=== PATIENT | male | born 1950 | race Caucasian/White ===

== ENCOUNTER 2016-04-22 19:20 | Inpatient (IN) | payer SELFPAY ==
[~2016-04-22] VITALS: Ht 193 cm; Wt 100.5 kg
[2016-04-22 20:44] VITALS: BP 120/84; PULSE 102; RESP 18; TEMP 98.8; O2SAT 97
[2016-04-22] MEDS ORDERED: chlordiazePOXIDE 25 MG CAP PO STA (21:02)
[2016-04-22] MEDS ORDERED: SODIUM CHLOR 0.9% 1000 ML INJ 1,000 ML IV ONE (21:02)
[2016-04-22] MEDS ORDERED: ONDANSETRON HCL 4 MG/2 ML VIAL IVP ONE (21:15)
[2016-04-22] MEDS ORDERED: SODIUM CHLORIDE 0.9% FLUSH 5 ML FLUSH IVF PRN (21:15)
--- NOTE | 2016-04-22 21:44 | PD ---
HPI Chief Complaint: Alcohol/Drug Intoxication Time Seen by Provider: 21:00 Travel History International Travel<30 days: No Contact w/Intl Traveler<30days: No Traveled to known affect area: No History of Present Illness HPI 65-year-old male presents for evaluation of possible alcohol withdrawal. He reports that he is a heavy drinker, tricks about a pint of liquor a day, drank heavily over this past weekend. He quit drinking 4 days ago and since then he' s been feeling nauseous and had occasional vomiting, lightheadedness. He denies any pain. He denies any shortness of breath, palpitations, headache, blurred vision. He reports that he has had withdrawal symptoms in the past and this feels similar. Denies any hematemesis. He has no other complaints at this time. [facility] Past Medical History Medical History: Denies Significant Hx Social History Alcohol Use: Yes Tobacco Use: No Allergies-Medications (Allergen,Severity, Reaction): Coded Allergies: No Known Allergies (Unverified , 04/22/16) Reported Meds & Prescriptions Reported Meds & Active Scripts Active No Active Prescriptions or Reported Medications Review of Systems Except as stated in HPI: all other systems reviewed are Neg Physical Exam Narrative GENERAL: Well-nourished male in no acute distress SKIN: Warm and dry. HEAD: Atraumatic. Normocephalic. EYES: Pupils equal and round. No scleral icterus. No injection or drainage. ENT: No nasal bleeding or discharge. Mucous membranes pink and moist. NECK: Trachea midline. No JVD. CARDIOVASCULAR: Regular rate and rhythm. No murmur appreciated. RESPIRATORY: No accessory muscle use. Clear to auscultation. Breath sounds equal bilaterally. GASTROINTESTINAL: Abdomen soft, non-tender, nondistended. Hepatic and splenic margins not palpable. MUSCULOSKELETAL: No obvious deformities. NEUROLOGICAL: Awake and alert. No obvious cranial nerve deficits. Motor grossly within normal limits. Normal speech. Data Data Last Documented VS Vital Signs Date Time Temp Pulse Resp B/P Pulse Ox O2 Delivery O2 Flow Rate FiO2 04/22/16 22:36 96 Room Air 04/22/16 22:36 105 18 123/86 04/22/16 20:44 98.8 Orders Electrocardiogram (04/22/16 21:02) Complete Blood Count With Diff (04/22/16 21:02) Comprehensive Metabolic Panel (04/22/16 21:02) Magnesium (Mg) (04/22/16 21:02) Ecg Monitoring (04/22/16 21:02) Iv Access Insert/Monitor (04/22/16 21:02) Oximetry (04/22/16 21:02) Ondansetron Inj (Zofran Inj) (04/22/16 21:15) Sodium Chloride 0.9% Flush (Ns Flush) (04/22/16 21:15) Sodium Chlor 0.9% 1000 Ml Inj (Ns 1000 M (04/22/16 21:02) Chlordiazepoxide (Librium) (04/22/16 21:02) Urinalysis - C+S If Indicated (04/22/16 23:42) Urine Culture (04/22/16 23:59) Ceftriaxone Inj (Rocephin Inj) (04/23/16 01:30) Ceftriaxone Inj (Rocephin Inj) (04/23/16 23:00) Bedside Glucose JULY.AC&HS (04/23/16 01:33) Intake + Output JULY.QSHIFT (04/23/16 01:33) Alcohol Withdrawal Asmt-Ciwa Q4HX18 (04/23/16 01:33) ^ Seizure Precautions (04/23/16 01:33) Multivitamin Inj (Mvi-12 Inj)... (04/23/16 01:45) Thiamine Inj (Thiamine Inj) (04/23/16 01:45) Thiamine (Vit B1) (Vitamin B1) (04/26/16 09:00) Consult Cm-Etoh Abuse Dc Plan (04/23/16 ) Flumazenil Inj (Romazicon Inj) (04/23/16 01:45) Lorazepam (Ativan) (04/23/16 01:45) Lorazepam Inj (Ativan Inj) (04/23/16 01:45) Lorazepam (Ativan) (04/23/16 01:45) Lorazepam Inj (Ativan Inj) (04/23/16 01:45) Lorazepam Inj (Ativan Inj) (04/23/16 01:45) Lorazepam Inj (Ativan Inj) (04/23/16 01:45) Haloperidol Inj (Haldol Inj) (04/23/16 01:45) Admit To Inpatient (04/23/16 ) Vital Signs (Adult) Q4H (04/23/16 01:33) Activity Oob With Assistance (04/23/16 01:33) Bituminous Paving Machine Operator / Telemetry .CONTINUOUS (04/23/16 01:33) Intake + Output JULY.QSHIFT (04/23/16 01:33) Diet Regular Basic (04/23/16 Breakfast) Sodium Chloride 0.9% Flush (Ns Flush) (04/23/16 01:45) Sodium Chloride 0.9% Flush (Ns Flush) (04/23/16 09:00) Ondansetron Inj (Zofran Inj) (04/23/16 01:45) Bisacodyl Supp (Dulcolax Supp) (04/23/16 01:45) Comprehensive Metabolic Panel (04/24/16 06:00) Complete Blood Count With Diff (04/24/16 06:00) Scd Bilateral/Knee High JULY.BID (04/23/16 01:33) Ty Bilateral/Knee High JULY.QSHIFT (04/23/16 01:33) Acetaminophen (Tylenol) (04/23/16 01:45) Oxycodone (Roxicodone) (04/23/16 01:45) Oxycodone (Roxicodone) (04/23/16 01:45) Inpatient Certification (04/23/16 ) Admit Order (Ed Use Only) (04/23/16 01:39) Labs Laboratory Tests Test 04/22/16 04/22/16 22:45 23:59 White Blood Count 15.3 TH/MM3 Red Blood Count 4.75 MIL/MM3 Hemoglobin 17.3 GM/DL Hematocrit 49.8 % Mean Corpuscular Volume 104.8 FL Mean Corpuscular Hemoglobin 36.4 PG Mean Corpuscular Hemoglobin 34.8 % Concent Red Cell Distribution Width 13.9 % Platelet Count 192 TH/MM3 Mean Platelet Volume 8.0 FL Neutrophils (%) (Auto) 84.5 % Lymphocytes (%) (Auto) 8.0 % Monocytes (%) (Auto) 7.0 % Eosinophils (%) (Auto) 0.0 % Basophils (%) (Auto) 0.5 % Neutrophils # (Auto) 12.9 TH/MM3 Lymphocytes # (Auto) 1.2 TH/MM3 Monocytes # (Auto) 1.1 TH/MM3 Eosinophils # (Auto) 0.0 TH/MM3 Basophils # (Auto) 0.1 TH/MM3 CBC Comment DIFF FINAL Differential Comment Sodium Level 136 MEQ/L Potassium Level 4.1 MEQ/L Chloride Level 95 MEQ/L Carbon Dioxide Level 29.5 MEQ/L Anion Gap 12 MEQ/L Blood Urea Nitrogen 24 MG/DL Creatinine 2.12 MG/DL Estimat Glomerular Filtration 32 ML/MIN Rate Random Glucose 199 MG/DL Calcium Level 11.6 MG/DL Protein Corrected Calcium 10.6 MG/DL Magnesium Level 1.3 MG/DL Total Bilirubin 1.2 MG/DL Aspartate Amino Transf 45 U/L (AST/SGOT) Alanine Aminotransferase 37 U/L (ALT/SGPT) Alkaline Phosphatase 86 U/L Total Protein 8.7 GM/DL Albumin 4.0 GM/DL Urine Color YELLOW Urine Turbidity HAZY Urine pH 5.5 Urine Specific [place] 1.016 Urine Protein 30 mg/dL Urine Glucose (UA) TRACE mg/dL Urine Ketones NEG mg/dL Urine Occult Blood MOD Urine Nitrite NEG Urine Bilirubin NEG Urine Urobilinogen LESS THAN 2.0 MG/DL Urine Leukocyte Esterase TRACE Urine RBC 21 /hpf Urine WBC 23 /hpf Urine Squamous Epithelial 2 /hpf Cells Urine Bacteria RARE /hpf Urine Hyaline Casts 21 /lpf Urine Mucus FEW /lpf Microscopic Urinalysis Comment CULTURE INDICATED MDM Medical Decision Making Medical Screen Exam Complete: Yes Emergency Medical Condition: Yes Medical Record Reviewed: Yes Differential Diagnosis Alcohol withdrawal, dehydration, electrolyte abnormality, arrhythmia, DT Narrative Course 65-year-old male heavy drinker presents with nausea, vomiting, lightheadedness over the past 4 days after not having had alcohol since 5 days ago. Initial examination is reassuring. We will check basic lab work, EKG. We will give him IV fluids, Zofran, Librium and reassess. 2257: At the end of my shift the patient was signed out after the patient was moved echo pod to the physician pending lab work, likely disposition home if lab work is reassuring. He may benefit from a short course of Librium and follow up with a detoxification center such as [facility]. Scripts No Active Prescriptions or Reported Meds Anderson Rivera Apr 22, 2016 21:44
[2016-04-22 22:36] VITALS: BP 123/86; PULSE 105; RESP 18; O2SAT 96
[2016-04-22 23:09] LABS: AUTOMATED NEUTROPHIL # 12.9 TH/MM3 (1.8-7.7); BASOPHIL # 0.1 TH/MM3 (0-0.2); BASOPHIL % 0.5 % (0.0-2.0); HEMATOCRIT 49.8 % (39.0-51.0); HEMO FLAGS DIFF FINAL; LYMPHOCYTE # 1.2 TH/MM3 (1.0-4.8); MEAN CELL VOLUME 104.8 FL (80.0-100.0); MEAN CORPUSCULAR HEMOGLOBIN 36.4 PG (27.0-34.0); MEAN CORPUSCULAR HGB CONC 34.8 % (32.0-36.0); NEUT % 84.5 % (16.0-70.0); PLATELET COUNT 192 TH/MM3 (150-450); RED BLOOD COUNT 4.75 MIL/MM3 (4.50-5.90); RED CELL DISTRIBUTION WIDTH 13.9 % (11.6-17.2); WHITE BLOOD COUNT 15.3 TH/MM3 (4.0-11.0)
[2016-04-22 23:28] LABS: BICARBONATE 29.5 MEQ/L (21.0-32.0); MAGNESIUM 1.3 MG/DL (1.5-2.5); POTASSIUM 4.1 MEQ/L (3.5-5.1)
[2016-04-22 23:31] LABS: CALCIUM-PROTEIN CORRECTED 10.6 MG/DL (8.5-10.1); TOTAL BILIRUBIN ADULT 1.2 MG/DL (0.2-1.0)
--- NOTE | 2016-04-22 23:50 | PD ---
Physical Exam Date Seen by Provider: Apr 22, 2016 Narrative Patient was initially evaluated by Anderson Rivera, PAC for alcohol withdrawal. Data Data Last Documented VS Vital Signs Date Time Temp Pulse Resp B/P Pulse Ox O2 Delivery O2 Flow Rate FiO2 04/22/16 22:36 96 Room Air 04/22/16 22:36 105 18 123/86 04/22/16 20:44 98.8 Orders Electrocardiogram (04/22/16 21:02) Complete Blood Count With Diff (04/22/16 21:02) Comprehensive Metabolic Panel (04/22/16 21:02) Magnesium (Mg) (04/22/16 21:02) Ecg Monitoring (04/22/16 21:02) Iv Access Insert/Monitor (04/22/16 21:02) Oximetry (04/22/16 21:02) Ondansetron Inj (Zofran Inj) (04/22/16 21:15) Sodium Chloride 0.9% Flush (Ns Flush) (04/22/16 21:15) Sodium Chlor 0.9% 1000 Ml Inj (Ns 1000 M (04/22/16 21:02) Chlordiazepoxide (Librium) (04/22/16 21:02) Urinalysis - C+S If Indicated (04/22/16 23:42) Urine Culture (04/22/16 23:59) Labs Laboratory Tests Test 04/22/16 04/22/16 22:45 23:59 White Blood Count 15.3 TH/MM3 Red Blood Count 4.75 MIL/MM3 Hemoglobin 17.3 GM/DL Hematocrit 49.8 % Mean Corpuscular Volume 104.8 FL Mean Corpuscular Hemoglobin 36.4 PG Mean Corpuscular Hemoglobin 34.8 % Concent Red Cell Distribution Width 13.9 % Platelet Count 192 TH/MM3 Mean Platelet Volume 8.0 FL Neutrophils (%) (Auto) 84.5 % Lymphocytes (%) (Auto) 8.0 % Monocytes (%) (Auto) 7.0 % Eosinophils (%) (Auto) 0.0 % Basophils (%) (Auto) 0.5 % Neutrophils # (Auto) 12.9 TH/MM3 Lymphocytes # (Auto) 1.2 TH/MM3 Monocytes # (Auto) 1.1 TH/MM3 Eosinophils # (Auto) 0.0 TH/MM3 Basophils # (Auto) 0.1 TH/MM3 CBC Comment DIFF FINAL Differential Comment Sodium Level 136 MEQ/L Potassium Level 4.1 MEQ/L Chloride Level 95 MEQ/L Carbon Dioxide Level 29.5 MEQ/L Anion Gap 12 MEQ/L Blood Urea Nitrogen 24 MG/DL Creatinine 2.12 MG/DL Estimat Glomerular Filtration 32 ML/MIN Rate Random Glucose 199 MG/DL Calcium Level 11.6 MG/DL Protein Corrected Calcium 10.6 MG/DL Magnesium Level 1.3 MG/DL Total Bilirubin 1.2 MG/DL Aspartate Amino Transf 45 U/L (AST/SGOT) Alanine Aminotransferase 37 U/L (ALT/SGPT) Alkaline Phosphatase 86 U/L Total Protein 8.7 GM/DL Albumin 4.0 GM/DL Urine Color YELLOW Urine Turbidity HAZY Urine pH 5.5 Urine Specific [place] 1.016 Urine Protein 30 mg/dL Urine Glucose (UA) TRACE mg/dL Urine Ketones NEG mg/dL Urine Occult Blood MOD Urine Nitrite NEG Urine Bilirubin NEG Urine Urobilinogen LESS THAN 2.0 MG/DL Urine Leukocyte Esterase TRACE Urine RBC 21 /hpf Urine WBC 23 /hpf Urine Squamous Epithelial 2 /hpf Cells Urine Bacteria RARE /hpf Urine Hyaline Casts 21 /lpf Urine Mucus FEW /lpf Microscopic Urinalysis Comment CULTURE INDICATED MDM Supervised Visit with BAILEE: Yes Narrative Course CBC & BMP Diagram 04/22/16 22:45 Patient has no old records for review. Therefore, I do not know whether or not this renal function is a new problem for him or if it is chronic. His urine is very concentrated appearing. More than likely, his renal function will improve with hydration. He is willing to be admitted for further treatment. UA also looks infected. He has trace leukocyte esterase, 23 white cells, rare bacteria. Diagnosis Primary Impression: Alcohol withdrawal Qualified Code: F10.230 - Alcohol withdrawal, uncomplicated Additional Impressions: Renal failure Hypomagnesemia UTI (urinary tract infection) Qualified Code: N30.00 - Acute cystitis without hematuria Admitting Information Admitting Physician Requests: Admit Scripts No Active Prescriptions or Reported Meds Condition: Rosita Beard MD Apr 22, 2016 23:50
[2016-04-23] VITALS (8 sets, daily range): BP systolic 134–156; BP diastolic 73–98; PULSE 82–108; RESP 15–22; TEMP 97.8–98.3; O2SAT 97–99
[2016-04-23 01:12] LABS: BACTERIA, URINE RARE /hpf; BLOOD, URINE MOD (NEG); COMMENT (UR) CULTURE INDICATED; CULTURE IF INDICATED CULTURE INDICATED; GLUCOSE,URINE TRACE mg/dL (NEG); HYALINE CAST, URINE 21 /lpf (RARE); KETONE, URINE NEG (NEG); MUCUS URINE FEW /lpf (OCC); NITRITE,URINE NEG (NEG); PH, URINE 5.5 (5.0-8.5); SQUAMOUS EPITHELIAL CELL URINE 2 /hpf (0-5); URINE COLOR YELLOW (YELLW/STRAW)
[2016-04-23] MEDS ORDERED: cefTRIAXone INJ 1,000 MG in SODIUM CHLORIDE 0.9% INJ 100 ML IV ONE (01:30)
[2016-04-23] MEDS ORDERED: BISACODYL 10 MG SUPP PR PRN (01:45)
[2016-04-23] MEDS ORDERED: HALOPERIDOL LACTATE 5 MG/ML AMP IM PRN (01:45)
[2016-04-23] MEDS ORDERED: LORazepam 2 MG/ML VIAL IV PUSH PRN ×2 (01:45)
[2016-04-23] MEDS ORDERED: SODIUM CHLORIDE 0.9% FLUSH 5 ML FLUSH FLUSH PRN (01:45)
[2016-04-23] MEDS ORDERED: ACETAMINOPHEN 325 MG TAB PO PRN (01:45)
[2016-04-23] MEDS ORDERED: FLUMAZENIL 0.5 MG/5 ML VIAL IV PUSH PRN (01:45)
[2016-04-23] MEDS: THIAMINE INJ 100 MG in SODIUM CHLORIDE 0.9% INJ 100 ML IV SCH (02:59)
[2016-04-23] MEDS: LORazepam 2 MG/ML VIAL IV PUSH PRN (02:59)
[2016-04-23] MEDS: MULTIVITAMIN INJ 10 ML, FOLIC ACID INJ 1 MG in SODIUM CHLORID 0.9% 500 ML INJ 500 ML IV SCH ×2 (02:59→05:02)
[2016-04-23] MEDS ORDERED: MAGNESIUM SULFATE 1 GM PREMIX 100 ML IV ONE (04:15)
--- NOTE | 2016-04-23 04:26 | HHI.HP ---
H[facility] Primary Care Physician No Primary Care Physician Admission Diagnosis alcohol abuse, hypomagnesemia, ARF Diagnoses: (1) Alcohol withdrawal Diagnosis: Principal (2) Hypomagnesemia Diagnosis: Principal (3) Hypercalcemia Diagnosis: Principal (4) Renal insufficiency Diagnosis: Principal (5) UTI (urinary tract infection) Diagnosis: Principal Travel History International Travel<30 Days: No Contact w/Intl Traveler <30 Da: No Traveled to Known Affected Are: No History of Present Illness This is a 65-year-old male with a PMH of Alcohol Abuse who presented to the ER secondary to alcohol withdrawal. Reports long history of alcohol abuse, drinks 1 Pint liquor daily, but quit 4 days ago. Has had progressive abdominal pain, nausea, vomiting and tremors. No seizure activity reported. On arrival, BP 120 /84, HR 102, O2 sat 97% on RA, Afebrile. WBC 15.3. Creatinine 2.12, and appears labs for comparison. GFR 32. Calcium 11.6. Mg 1.3. U/a w/ UTI. S/p Urine Culture and IV Rocephin in ER. Review of Systems Except as stated in HPI: all other systems reviewed are Neg ROS: 14 point review of systems otherwise negative. Past Family Social History Past Medical History PMH: Alcohol Abuse Past Surgical History PAST SURGICAL HISTORY: None Allergies: Coded Allergies: No Known Allergies (Unverified , 04/22/16) Family History PAST FAMILY HISTORY: Reviewed. No h/o DM or CAD Social History PAST SOCIAL HISTORY: Drinks 1 pint daily. Negative for tobacco or drugs. Physical Exam Vital Signs Vital Signs Date Time Temp Pulse Resp B/P Pulse Ox O2 Delivery O2 Flow Rate FiO2 04/23/16 03:00 93 18 156/92 99 04/22/16 22:36 96 Room Air 04/22/16 22:36 105 18 123/86 96 Room Air 04/22/16 20:44 98.8 102 18 120/84 97 Physical Exam PE: GENERAL: Pleasant middle-aged white male in no acute distress, resting comfortably. HEENT: PERRLA, EOMI. No scleral icterus or conjunctival pallor. No lid lag or facial droop. CARDIOVASCULAR: Regular rate and rhythm. No obvious murmurs to auscultation. No chest tenderness to palpation. RESPIRATORY: No obvious rhonchi or wheezing. Clear to auscultation. Breath sounds equal bilaterally. GASTROINTESTINAL: Abdomen soft, non-tender, nondistended. BS normal. MUSCULOSKELETAL: Extremities without clubbing, cyanosis, or edema. No obvious deformities. NEUROLOGICAL: Awake, alert and oriented x4. No focal neurologic deficits. Moving both upper and lower extremities spontaneously. Laboratory Laboratory Tests Test 04/22/16 04/22/16 22:45 23:59 White Blood Count 15.3 Red Blood Count 4.75 Hemoglobin 17.3 Hematocrit 49.8 Mean Corpuscular Volume 104.8 Mean Corpuscular Hemoglobin 36.4 Mean Corpuscular Hemoglobin 34.8 Concent Red Cell Distribution Width 13.9 Platelet Count 192 Mean Platelet Volume 8.0 Neutrophils (%) (Auto) 84.5 Lymphocytes (%) (Auto) 8.0 Monocytes (%) (Auto) 7.0 Eosinophils (%) (Auto) 0.0 Basophils (%) (Auto) 0.5 Neutrophils # (Auto) 12.9 Lymphocytes # (Auto) 1.2 Monocytes # (Auto) 1.1 Eosinophils # (Auto) 0.0 Basophils # (Auto) 0.1 CBC Comment DIFF FINAL Differential Comment Sodium Level 136 Potassium Level 4.1 Chloride Level 95 Carbon Dioxide Level 29.5 Anion Gap 12 Blood Urea Nitrogen 24 Creatinine 2.12 Estimat Glomerular Filtration 32 Rate Random Glucose 199 Calcium Level 11.6 Protein Corrected Calcium 10.6 Magnesium Level 1.3 Total Bilirubin 1.2 Aspartate Amino Transf 45 (AST/SGOT) Alanine Aminotransferase 37 (ALT/SGPT) Alkaline Phosphatase 86 Total Protein 8.7 Albumin 4.0 Urine Color YELLOW Urine Turbidity HAZY Urine pH 5.5 Urine Specific [place] 1.016 Urine Protein 30 Urine Glucose (UA) TRACE Urine Ketones NEG Urine Occult Blood MOD Urine Nitrite NEG Urine Bilirubin NEG Urine Urobilinogen LESS THAN 2.0 Urine Leukocyte Esterase TRACE Urine RBC 21 Urine WBC 23 Urine Squamous Epithelial 2 Cells Urine Bacteria RARE Urine Hyaline Casts 21 Urine Mucus FEW Microscopic Urinalysis Comment CULTURE INDICATED Date/Time Procedure Status Source Growth 04/22/16 23:59 Urine Culture Received Urine Clean Catch Pending Result Diagram: 04/22/16224404/22/162244 Assessment and Plan Problem List: (1) Alcohol withdrawal ICD Code: F10.239 Status: Acute (2) Hypercalcemia ICD Code: E83.52 Status: Acute (3) Hypomagnesemia ICD Code: E83.42 Status: Acute (4) Renal insufficiency ICD Code: N28.9 Status: Acute (5) UTI (urinary tract infection) ICD Code: N39.0 Status: Acute Assessment and Plan A/P: 1. Alcohol Withdrawal: h/o Heavy Alcohol Abuse w/ Acute Withdrawal, drinks 1 Pint daily, last drink approx 4 days ago, alcohol level negative, +nausea/ vomiting, abdominal pain and tremor. IVF, Seizure Precautions, CIWA, MVT/ Thiamine/Folate replacement. Analgesics/antiemetics as needed. 2. Hypercalcemia: Ca 11.6, secondary to significant dehydration, IVF, repeat labs in am. 3. Hypomagnesemia: Mg 1.3, replace and recheck labs in am. 4. Renal Insufficiency: Creatinine 2.12, BUN 24, no previous labs for comparison, presumably acute. U/a w/ UTI, IVF, repeat labs in am. 5. UTI: U/a w/ UTI. S/p Urine Cultures and IV Rocephin, follow up cultures, continue IV Rocephin. 6. DVT Prophylaxis: SCD/Teds. 7. Social work for d/c planning as needed. 8. Case discussed w/ ER physician at length. Physician Certification 2 Midnight Certification Type: Admission for Inpatient Services Order for Inpatient Services The services are ordered in accordance with Medicare regulations or non- Medicare payer requirements, as applicable. In the case of services not specified as inpatient-only, they are appropriately provided as inpatient services in accordance with the 2-midnight benchmark. Estimated LOS (days): 2 days is the estimated time the patient will need to remain in the hospital, assuming treatment plan goals are met and no additional complications. Post-Hospital Plan: Not yet determined Problem Qualifiers (1) Alcohol withdrawal: Qualified Code: F10.230 - Alcohol withdrawal, uncomplicated (2) UTI (urinary tract infection): Qualified Code: N30.00 - Acute cystitis without hematuria Tiara Garcia MD Apr 23, 2016 04:26
[2016-04-23] MEDS: ONDANSETRON HCL 4 MG/2 ML VIAL IVP PRN (05:38)
[2016-04-23] MEDS: CALCIUM CARBONATE 500 MG CHEWABLE TAB CHEW PRN ×2 (08:28→20:28)
[2016-04-23] MEDS: METOCLOPRAMIDE HCL 10 MG/2 ML VIAL IV PRN (08:28)
[2016-04-23] MEDS: SODIUM CHLORIDE 0.9% FLUSH 5 ML FLUSH FLUSH SCH ×2 (08:28→20:16)
--- NOTE | 2016-04-23 09:07 | HHI.PR ---
Subjective Remarks Follow-up alcohol withdrawal 04/23/16-patient seen and examined, alert and oriented 3, no acute event overnight and currently afebrile. Objective Vitals Vital Signs Date Time Temp Pulse Resp B/P Pulse Ox O2 Delivery O2 Flow Rate FiO2 04/23/16 07:00 100 15 152/98 99 Room Air 04/23/16 06:00 93 18 139/85 99 Room Air 04/23/16 03:00 93 18 156/92 99 04/22/16 22:36 96 Room Air 04/22/16 22:36 105 18 123/86 96 Room Air 04/22/16 20:44 98.8 102 18 120/84 97 Result Diagram: 04/22/16224404/22/162244 Objective Remarks GENERAL: NAD SKIN: Warm and dry. HEAD: Normocephalic. EYES: No scleral icterus. No injection or drainage. NECK: Supple, trachea midline. No JVD or lymphadenopathy. CARDIOVASCULAR: Regular rate and rhythm without murmurs, gallops, or rubs. RESPIRATORY: Breath sounds equal bilaterally. No accessory muscle use. GASTROINTESTINAL: Abdomen soft, non-tender, nondistended. MUSCULOSKELETAL: No cyanosis, or edema. BACK: Nontender without obvious deformity. No CVA tenderness. A/P Problem List: (1) Alcohol withdrawal ICD Code: F10.239 Status: Acute (2) Hypercalcemia ICD Code: E83.52 Status: Acute (3) Hypomagnesemia ICD Code: E83.42 Status: Acute (4) Renal insufficiency ICD Code: N28.9 Status: Acute (5) UTI (urinary tract infection) ICD Code: N39.0 Status: Acute Assessment and Plan 65-year-old male with 1. Alcohol Withdrawal: h/o Heavy Alcohol Abuse w/ Acute Withdrawal, drinks 1 Pint daily, last drink approx 4 days ago, alcohol level negative, schedule Librium 25 mg 3 times a day and continue with IVF, Seizure Precautions, CIWA, MVT/Thiamine/Folate replacement. Analgesics/antiemetics as needed. 2. Hypercalcemia: Ca 11.6, secondary to significant dehydration , repeat electrolytes now and continue IV fluid hydration. 3. Hypomagnesemia: Replace electrolyte and monitor 4. Renal Insufficiency: Creatinine 2.12, BUN 24, no previous labs for comparison, presumably acute. Continue gentle IV fluid hydration 5. UTI: U/a w/ UTI. S/p Urine Cultures and IV Rocephin, follow up cultures, continue IV Rocephin. 6. DVT Prophylaxis: SCD/Teds. Problem Qualifiers (1) Alcohol withdrawal: Qualified Code: F10.230 - Alcohol withdrawal, uncomplicated (2) UTI (urinary tract infection): Qualified Code: N30.00 - Acute cystitis without hematuria Seferino Dyson MD Apr 23, 2016 09:07
[2016-04-23] MEDS: chlordiazePOXIDE 25 MG CAP PO SCH ×3 (10:17→17:05)
[2016-04-23 12:39] LABS: ALKALINE PHOSPHATASE 75 U/L (45-117); ALT (GPT) 34 U/L (12-78); ANION GAP 7 MEQ/L (5-15); AST (GOT) 43 U/L (15-37); BICARBONATE 30.3 MEQ/L (21.0-32.0); BLOOD UREA NITROGEN 24 MG/DL (7-18); CHLORIDE 100 MEQ/L (98-107); GLOMERULAR FILTRATION RATE 44 ML/MIN (>89); MAGNESIUM 1.5 MG/DL (1.5-2.5); SODIUM (NA) 137 MEQ/L (136-145); TOTAL BILIRUBIN ADULT 0.9 MG/DL (0.2-1.0)
[2016-04-23 12:40] LABS: POTASSIUM 3.9 MEQ/L (3.5-5.1)
--- NOTE | 2016-04-23 16:43 | EKG ---
Date Performed: 04/22/2016 Time Performed: 22:45:38 PTAGE: 65 years EKG: SINUS TACHYCARDIA ABNORMAL RHYTHM ECG NO PREVIOUS TRACING DOCTOR: Yunior Roman Interpretating Date/Time 04/23/2016 16:41:28
[2016-04-23] MEDS ORDERED: cefTRIAXone INJ 1,000 MG in SODIUM CHLORIDE 0.9% INJ 100 ML IV SCH (23:00)
[2016-04-24] VITALS (8 sets, daily range): BP systolic 126–142; BP diastolic 64–89; PULSE 79–101; RESP 16–21; TEMP 97.7–98.7; O2SAT 94–97
[2016-04-24] MEDS: LORazepam 2 MG/ML VIAL IV PUSH PRN ×2 (00:43→05:37)
[2016-04-24] MEDS: ONDANSETRON HCL 4 MG/2 ML VIAL IVP PRN ×2 (00:45→22:20)
[2016-04-24] MEDS: THIAMINE INJ 100 MG in SODIUM CHLORIDE 0.9% INJ 100 ML IV SCH (02:20)
[2016-04-24] MEDS: MULTIVITAMIN INJ 10 ML, FOLIC ACID INJ 1 MG in SODIUM CHLORID 0.9% 500 ML INJ 500 ML IV SCH (02:24)
[2016-04-24] MEDS: CALCIUM CARBONATE 500 MG CHEWABLE TAB CHEW PRN ×2 (05:37→22:18)
[2016-04-24] MEDS: METOCLOPRAMIDE HCL 10 MG/2 ML VIAL IV PRN (05:37)
[2016-04-24 07:37] LABS: AUTOMATED NEUTROPHIL # 9.9 TH/MM3 (1.8-7.7); BASOPHIL % 0.2 % (0.0-2.0); EOSINOPHIL # 0.1 TH/MM3 (0-0.4); LYMPH % 10.3 % (9.0-44.0); LYMPHOCYTE # 1.3 TH/MM3 (1.0-4.8); MEAN CELL VOLUME 104.9 FL (80.0-100.0); MEAN CORPUSCULAR HEMOGLOBIN 36.2 PG (27.0-34.0); MEAN CORPUSCULAR HGB CONC 34.5 % (32.0-36.0); MONO % 9.1 % (0.0-8.0); NEUT % 79.4 % (16.0-70.0); PLATELET COUNT 90 TH/MM3 (150-450); RED CELL DISTRIBUTION WIDTH 14.1 % (11.6-17.2); WHITE BLOOD COUNT 12.5 TH/MM3 (4.0-11.0)
[2016-04-24 07:56] LABS: HEMO FLAGS AUTO DIFF
[2016-04-24 08:14] LABS: ALKALINE PHOSPHATASE 73 U/L (45-117); ALT (GPT) 33 U/L (12-78); ANION GAP 11 MEQ/L (5-15); AST (GOT) 35 U/L (15-37); BICARBONATE 27.1 MEQ/L (21.0-32.0); BLOOD UREA NITROGEN 21 MG/DL (7-18); CHLORIDE 98 MEQ/L (98-107); GLOMERULAR FILTRATION RATE 49 ML/MIN (>89); POTASSIUM 3.5 MEQ/L (3.5-5.1); SODIUM (NA) 136 MEQ/L (136-145); TOTAL BILIRUBIN ADULT 1.2 MG/DL (0.2-1.0)
[2016-04-24 09:02] LABS: BANDS 4 % (0-6); EOSINOPHILS 2 % (0-4); METAMYELOCYTES 1 % (0-1); NEUTROPHIL # MANUAL DIFF 10.3 TH/MM3 (1.8-7.7); PLATELET ESTIMATE SMEAR LOW (NORMAL); PLATELET MORPHOLOGY NORMAL (NORMAL); POLYS (SEG NEUTROPHILS) 77 % (16-70); SCAN/DIFF FINAL DIFF MANUAL; WBC DIFF SAMPLE 100
[2016-04-24] MEDS ORDERED: INFLUENZA VIRUS VACCINE (QUADRIVALENT) 0.5 ML SYR IM ONE (10:00)
[2016-04-24] MEDS ORDERED: PNEUMOCOCCAL POLYVALENT INJ 25 MCG/0.5 ML SYR IM ONE (10:00)
[2016-04-24] MEDS: SODIUM CHLORIDE 0.9% FLUSH 5 ML FLUSH FLUSH SCH ×2 (10:16→20:29)
[2016-04-24] MEDS: chlordiazePOXIDE 25 MG CAP PO SCH ×3 (10:16→17:31)
--- NOTE | 2016-04-24 11:39 | HHI.PR ---
Subjective Remarks Patient seen in follow-up for alcohol intoxication/withdrawal and acute renal insufficiency. He reports that he is feeling slightly better but still very shaky. No nausea or vomiting, he is tolerating a diet. He feels very thirsty. Objective Vitals Vital Signs Date Time Temp Pulse Resp B/P Pulse Ox O2 Delivery O2 Flow Rate FiO2 04/24/16 08:27 98.0 101 21 140/89 94 04/24/16 04:00 98.1 95 18 127/78 95 04/24/16 00:00 98.1 89 16 134/64 97 04/23/16 20:19 94 04/23/16 20:00 98.3 108 16 134/73 99 04/23/16 15:17 97.8 88 22 139/86 97 04/23/16 13:00 90 16 137/88 97 Room Air I/O 04/23/16 04/23/16 04/23/16 04/24/16 04/24/16 04/24/16 07:00 15:00 23:00 07:00 15:00 23:00 Intake Total 120 ml 120 ml Output Total 250 ml Balance 120 ml -130 ml Intake Oral 120 ml 120 ml Output Urine Total 250 ml # Voids 1 # Bowel Movements 0 0 Result Diagram: 04/24/1655 04/24/16 0655 Objective Remarks GENERAL: Obese male, smell of urine. In no acute distress. CARDIOVASCULAR: Normal rate and regular rhythm without murmurs, gallops, or rubs. RESPIRATORY: Good respiratory efforts. Breath sounds equal and clear to auscultation bilaterally. GASTROINTESTINAL: Abdomen soft, non-tender, non-distended. Normal active bowel sounds MUSCULOSKELETAL: Extremities without cyanosis, or edema. NEURO: Alert & Oriented x4 to person, place, time, situation. Moves all ext x4. Patient is very tremulous PSYCH: Anxious. A/P Problem List: (1) Alcohol withdrawal ICD Code: F10.239 Status: Acute (2) Hypercalcemia ICD Code: E83.52 Status: Acute (3) Hypomagnesemia ICD Code: E83.42 Status: Acute (4) Renal insufficiency ICD Code: N28.9 Status: Acute (5) UTI (urinary tract infection) ICD Code: N39.0 Status: Acute Assessment and Plan 65-year-old male with Alcohol intoxication/Withdrawal: h/o Heavy Alcohol Abuse w/ Acute Withdrawal, drinks 1 Pint daily, last drink approx 4 days ago, alcohol level negative, schedule Librium 25 mg 3 times a day and continue with IVF, Seizure Precautions , CIWA protocol, MVT/Thiamine/Folate replacement. Analgesics/antiemetics as needed. Hypercalcemia: Ca 11.6, secondary to significant dehydration , repeat electrolytes now and continue IV fluid hydration. Thrombocytopenia: Likely secondary to chronic alcohol abuse. Continue to monitor. Hypomagnesemia: Replace electrolyte and monitor Renal Insufficiency: Creatinine 2.12, BUN 24 on admission, improving. Continue gentle IV fluid hydration Abnormal urinalysis: Urine culture grew mixed gram-positive, likely contaminant. Discontinue antibiotics. DVT Prophylaxis: SCD/Teds. No chemoprophylaxis due to thrombocytopenia Problem Qualifiers (1) Alcohol withdrawal: Qualified Code: F10.230 - Alcohol withdrawal, uncomplicated (2) UTI (urinary tract infection): Qualified Code: N30.00 - Acute cystitis without hematuria Gabino Quintanilla MD Apr 24, 2016 11:39
[2016-04-24] MEDS ORDERED: SODIUM CHLOR 0.9% 1000 ML INJ 1,000 ML IV SCH (12:45)
[2016-04-24] MEDS: LORazepam 1 MG TAB PO PRN (22:26)
[2016-04-25] VITALS (7 sets, daily range): BP systolic 139–187; BP diastolic 78–99; PULSE 92–118; RESP 18–21; TEMP 98–99.1; O2SAT 94–98
[2016-04-25] MEDS: METOCLOPRAMIDE HCL 10 MG/2 ML VIAL IV PRN ×2 (00:43→20:45)
[2016-04-25] MEDS: THIAMINE INJ 100 MG in SODIUM CHLORIDE 0.9% INJ 100 ML IV SCH (00:45)
[2016-04-25] MEDS: MULTIVITAMIN INJ 10 ML, FOLIC ACID INJ 1 MG in SODIUM CHLORID 0.9% 500 ML INJ 500 ML IV SCH (00:45)
[2016-04-25] MEDS: ONDANSETRON HCL 4 MG/2 ML VIAL IVP PRN (05:28)
[2016-04-25] MEDS: LORazepam 1 MG TAB PO PRN ×3 (05:29→20:45)
[2016-04-25] MEDS: CALCIUM CARBONATE 500 MG CHEWABLE TAB CHEW PRN ×3 (06:17→15:55)
[2016-04-25] MEDS: SODIUM CHLORIDE 0.9% FLUSH 5 ML FLUSH FLUSH SCH ×2 (08:50→20:34)
[2016-04-25] MEDS: chlordiazePOXIDE 25 MG CAP PO SCH (08:51)
[2016-04-25 11:09] LABS: AUTOMATED NEUTROPHIL # 10.2 TH/MM3 (1.8-7.7); BASOPHIL % 0.2 % (0.0-2.0); EOSINOPHIL % 0.3 % (0.0-4.0); HEMATOCRIT 40.5 % (39.0-51.0); HEMO FLAGS AUTO DIFF; LYMPH % 9.2 % (9.0-44.0); LYMPHOCYTE # 1.2 TH/MM3 (1.0-4.8); MEAN CELL VOLUME 103.9 FL (80.0-100.0); MEAN CORPUSCULAR HEMOGLOBIN 36.2 PG (27.0-34.0); MEAN CORPUSCULAR HGB CONC 34.9 % (32.0-36.0); MONO % 10.9 % (0.0-8.0); NEUT % 79.4 % (16.0-70.0); PLATELET COUNT 96 TH/MM3 (150-450); RED CELL DISTRIBUTION WIDTH 13.7 % (11.6-17.2); WHITE BLOOD COUNT 12.9 TH/MM3 (4.0-11.0)
[2016-04-25 11:25] LABS: BICARBONATE 29.2 MEQ/L (21.0-32.0); POTASSIUM 3.6 MEQ/L (3.5-5.1)
--- NOTE | 2016-04-25 11:36 | HHI.PR ---
Subjective Remarks Patient reports that he is feeling worse today. He is dry heaving. Unable to eat with persistent nausea. Discussed with RN. He is becoming more agitated. He is somewhat confused about how long he has been in the hospital. Objective Vitals Vital Signs Date Time Temp Pulse Resp B/P Pulse Ox O2 Delivery O2 Flow Rate FiO2 04/25/16 08:12 98.5 92 20 187/88 98 04/25/16 04:31 98.4 107 20 139/78 96 04/25/16 00:26 98.4 102 18 157/88 97 04/24/16 20:01 79 04/24/16 20:00 98.7 90 16 136/73 95 04/24/16 18:36 97 04/24/16 16:29 97.7 91 18 142/88 94 04/24/16 12:07 98.4 92 18 126/88 95 I/O 04/24/16 04/24/16 04/24/16 04/25/16 04/25/16 04/25/16 07:00 15:00 23:00 07:00 15:00 23:00 Intake Total 120 ml 960 ml 1000 ml 820 ml Output Total 250 ml 300 ml 500 ml 600 ml Balance -130 ml 660 ml 500 ml 220 ml Intake Oral 120 ml 960 ml 1000 ml 820 ml Output Urine Total 250 ml 300 ml 500 ml 600 ml # Bowel Movements 0 0 1 0 Result Diagram: 04/25/16 1030 04/25/16 1030 Objective Remarks GENERAL: Obese male, smell of urine. Dry heaving. CARDIOVASCULAR: Normal rate and regular rhythm without murmurs, gallops, or rubs. RESPIRATORY: Good respiratory efforts. Breath sounds equal and clear to auscultation bilaterally. GASTROINTESTINAL: Abdomen soft, non-tender, non-distended. Normal active bowel sounds MUSCULOSKELETAL: Extremities without cyanosis, or edema. NEURO: Alert & Oriented to person, place, situation. Moves all ext x4. Patient is still tremulous PSYCH: Anxious and easily agitated. A/P Problem List: (1) Alcohol withdrawal ICD Code: F10.239 Status: Acute (2) Hypercalcemia ICD Code: E83.52 Status: Acute (3) Hypomagnesemia ICD Code: E83.42 Status: Acute (4) Renal insufficiency ICD Code: N28.9 Status: Acute (5) UTI (urinary tract infection) ICD Code: N39.0 Status: Acute Assessment and Plan 65-year-old male with Alcohol intoxication/Withdrawal: Still withdrawing. H/o Heavy Alcohol Abuse w/ Acute Withdrawal, drinks 1 Pint daily, last drink approx 4 days ago, alcohol level negative, continue with IVF, Seizure Precautions, CIWA protocol, MVT/ Thiamine/Folate replacement. Analgesics/antiemetics as needed. Will DC Librium and continue on CIWA protocol. Hypercalcemia: Ca 11.6, secondary to significant dehydration , resolved with IV fluid hydration. Thrombocytopenia: Likely secondary to chronic alcohol abuse. Continue to monitor. Hypomagnesemia: Replace electrolyte and monitor Renal Insufficiency: Creatinine 2.12, BUN 24 on admission, improving. Continue gentle IV fluid hydration Abnormal urinalysis: Urine culture grew mixed gram-positive, likely contaminant. Antibiotics discontinued. DVT Prophylaxis: SCD/Teds. No chemoprophylaxis due to thrombocytopenia Problem Qualifiers (1) Alcohol withdrawal: Qualified Code: F10.230 - Alcohol withdrawal, uncomplicated (2) UTI (urinary tract infection): Qualified Code: N30.00 - Acute cystitis without hematuria Gabino Quintanilla MD Apr 25, 2016 11:36
[2016-04-25] MEDS ORDERED: cloNIDine HCL 0.1 MG TAB PO PRN (11:45)
[2016-04-25 12:09] LABS: PLATELET ESTIMATE SMEAR LOW (NORMAL); PLATELET MORPHOLOGY NORMAL (NORMAL); SCAN/DIFF AUTO DIFF CONFIRMED
[2016-04-25] MEDS: PANTOPRAZOLE SODIUM 40 MG VIAL IV PUSH SCH (14:16)
[2016-04-25] MEDS: D5-1/2 NS + KCL 20 MEQ INJ 1,000 ML IV SCH ×2 (14:16→20:35)
[2016-04-25] MEDS: LORazepam 2 MG TAB PO PRN (15:56)
[2016-04-25 16:05] LABS: MAGNESIUM 1.5 MG/DL (1.5-2.5)
[2016-04-26] VITALS (8 sets, daily range): BP systolic 119–147; BP diastolic 55–85; PULSE 90–104; RESP 18–20; TEMP 97.2–98.7; O2SAT 94–100
[2016-04-26] MEDS: MULTIVITAMIN INJ 10 ML, FOLIC ACID INJ 1 MG in SODIUM CHLORID 0.9% 500 ML INJ 500 ML IV SCH (00:54)
[2016-04-26] MEDS: LORazepam 2 MG/ML VIAL IV PUSH PRN (04:54)
[2016-04-26 08:42] LABS: HEMATOCRIT 37.9 % (39.0-51.0); MEAN CELL VOLUME 103.5 FL (80.0-100.0); MEAN CORPUSCULAR HEMOGLOBIN 35.9 PG (27.0-34.0); MEAN CORPUSCULAR HGB CONC 34.7 % (32.0-36.0); PLATELET COUNT 97 TH/MM3 (150-450); RED BLOOD COUNT 3.66 MIL/MM3 (4.50-5.90); RED CELL DISTRIBUTION WIDTH 13.9 % (11.6-17.2); WHITE BLOOD COUNT 13.9 TH/MM3 (4.0-11.0)
[2016-04-26 08:53] LABS: REVIEW FLAG FINAL
[2016-04-26 08:58] LABS: BICARBONATE 25.7 MEQ/L (21.0-32.0); POTASSIUM 3.7 MEQ/L (3.5-5.1)
[2016-04-26] MEDS: D5-1/2 NS + KCL 20 MEQ INJ 1,000 ML IV SCH ×2 (09:47→16:49)
[2016-04-26] MEDS: THIAMINE HCL 100 MG TAB PO SCH (09:47)
[2016-04-26] MEDS: SODIUM CHLORIDE 0.9% FLUSH 5 ML FLUSH FLUSH SCH ×2 (09:47→22:10)
--- NOTE | 2016-04-26 12:29 | HHI.PR ---
Subjective Remarks Patient reports that he is feeling slightly better today. Still having nausea but no vomiting. Have not tried to eat yet. He is less shaky but still scoring high on CIWA protocol. Objective Vitals Vital Signs Date Time Temp Pulse Resp B/P Pulse Ox O2 Delivery O2 Flow Rate FiO2 04/26/16 09:51 102 04/26/16 08:00 97.2 96 20 147/85 97 04/26/16 04:00 98.0 104 20 136/82 94 04/26/16 00:00 97.3 101 20 140/70 95 04/25/16 20:31 104 04/25/16 20:00 99.1 106 20 176/99 94 04/25/16 16:10 98.1 118 21 167/98 96 I/O 04/25/16 04/25/16 04/25/16 04/26/16 04/26/16 04/26/16 07:00 15:00 23:00 07:00 15:00 23:00 Intake Total 820 ml 720 ml 120 ml 220 ml Output Total 600 ml 100 ml Balance 220 ml 720 ml 20 ml 220 ml Intake Oral 820 ml 720 ml 120 ml 220 ml Output Urine Total 600 ml 100 ml # Voids 3 3 # Bowel Movements 0 0 0 0 Result Diagram: 04/26/16 0752 04/26/16 075 Objective Remarks GENERAL: Obese male in no acute distress. CARDIOVASCULAR: Normal rate and regular rhythm without murmurs, gallops, or rubs. RESPIRATORY: Good respiratory efforts. Breath sounds equal and clear to auscultation bilaterally. GASTROINTESTINAL: Abdomen soft, non-tender, non-distended. Normal active bowel sounds MUSCULOSKELETAL: Extremities without cyanosis, or edema. NEURO: Alert & Oriented to person, place, situation. Moves all ext x4. Patient is still tremulous PSYCH: Calm A/P Problem List: (1) Alcohol withdrawal ICD Code: F10.239 Status: Acute (2) Hypercalcemia ICD Code: E83.52 Status: Acute (3) Hypomagnesemia ICD Code: E83.42 Status: Acute (4) Renal insufficiency ICD Code: N28.9 Status: Acute (5) UTI (urinary tract infection) ICD Code: N39.0 Status: Acute Assessment and Plan 65-year-old male with Alcohol intoxication/Withdrawal: Still withdrawing. H/o Heavy Alcohol Abuse w/ Acute Withdrawal, drinks 1 Pint daily, last drink approx 4 days prior to admission, alcohol level negative, continue with IVF, Seizure Precautions, CIWA protocol, MVT/Thiamine/Folate replacement. Analgesics/antiemetics as needed. Improving. Continue to follow Hypercalcemia: Ca 11.6, secondary to significant dehydration , resolved with IV fluid hydration. Thrombocytopenia: Likely secondary to chronic alcohol abuse. Continue to monitor. Hypomagnesemia: Replace electrolyte and monitor Renal Insufficiency: Creatinine 2.12, BUN 24 on admission, improving. Continue gentle IV fluid hydration Abnormal urinalysis: Urine culture grew mixed gram-positive, likely contaminant. Antibiotics discontinued. DVT Prophylaxis: SCD/Teds. No chemoprophylaxis due to thrombocytopenia Problem Qualifiers (1) Alcohol withdrawal: Qualified Code: F10.230 - Alcohol withdrawal, uncomplicated (2) UTI (urinary tract infection): Qualified Code: N30.00 - Acute cystitis without hematuria Gabino Quintanilla MD Apr 26, 2016 12:29
[2016-04-26] MEDS: PANTOPRAZOLE SODIUM 40 MG VIAL IV PUSH SCH (12:32)
[2016-04-26] MEDS: LORazepam 1 MG TAB PO PRN (23:20)
[2016-04-27] VITALS (8 sets, daily range): BP systolic 113–166; BP diastolic 68–84; PULSE 96–109; RESP 18–20; TEMP 97.8–99.7; O2SAT 97–100
[2016-04-27] MEDS: MULTIVITAMIN INJ 10 ML, FOLIC ACID INJ 1 MG in SODIUM CHLORID 0.9% 500 ML INJ 500 ML IV SCH (02:34)
[2016-04-27] MEDS: D5-1/2 NS + KCL 20 MEQ INJ 1,000 ML IV SCH ×3 (02:35→23:23)
[2016-04-27] MEDS: LORazepam 1 MG TAB PO PRN ×3 (07:13→17:01)
[2016-04-27 07:20] LABS: HEMATOCRIT 40.2 % (39.0-51.0); MEAN CELL VOLUME 106.3 FL (80.0-100.0); MEAN CORPUSCULAR HEMOGLOBIN 35.7 PG (27.0-34.0); MEAN CORPUSCULAR HGB CONC 33.6 % (32.0-36.0); PLATELET COUNT 114 TH/MM3 (150-450); RED BLOOD COUNT 3.79 MIL/MM3 (4.50-5.90); RED CELL DISTRIBUTION WIDTH 13.9 % (11.6-17.2); REVIEW FLAG FINAL; WHITE BLOOD COUNT 13.6 TH/MM3 (4.0-11.0)
[2016-04-27 07:35] LABS: BICARBONATE 24.9 MEQ/L (21.0-32.0); POTASSIUM 3.8 MEQ/L (3.5-5.1)
[2016-04-27] MEDS: SODIUM CHLORIDE 0.9% FLUSH 5 ML FLUSH FLUSH SCH ×2 (09:55→21:46)
[2016-04-27] MEDS: THIAMINE HCL 100 MG TAB PO SCH (09:55)
[2016-04-27] MEDS: PANTOPRAZOLE SODIUM 40 MG VIAL IV PUSH SCH (12:51)
--- NOTE | 2016-04-27 13:58 | HHI.PR ---
Subjective Remarks Patient is very somnolent today. He did not eat breakfast or lunch. He reports feeling very tired. No vomiting. Objective Vitals Vital Signs Date Time Temp Pulse Resp B/P Pulse Ox O2 Delivery O2 Flow Rate FiO2 04/27/16 10:02 101 04/27/16 08:00 97.8 98 20 133/79 99 04/27/16 04:00 97.9 100 19 113/69 100 04/27/16 00:00 98.5 107 20 166/84 98 04/26/16 21:00 92 04/26/16 20:00 98.4 91 18 119/73 96 04/26/16 16:00 98.7 97 20 128/74 98 I/O 04/26/16 04/26/16 04/26/16 04/27/16 04/27/16 04/27/16 07:00 15:00 23:00 07:00 15:00 23:00 Intake Total 220 ml 120 ml 2975 ml 1337 ml Output Total 600 ml Balance 220 ml -480 ml 2975 ml 1337 ml Intake Oral 220 ml 120 ml 720 ml IV Total 2255 ml 1337 ml Output Urine Total 600 ml # Voids 3 3 # Bowel Movements 0 0 0 Result Diagram: 04/27/16 0631 04/27/16 0631 Objective Remarks GENERAL: Obese male in no acute distress. CARDIOVASCULAR: Normal rate and regular rhythm without murmurs, gallops, or rubs. RESPIRATORY: Good respiratory efforts. Breath sounds equal and clear to auscultation bilaterally. GASTROINTESTINAL: Abdomen soft, non-tender, non-distended. Normal active bowel sounds MUSCULOSKELETAL: Extremities without cyanosis, or edema. NEURO: Somnolent. Moves all 4 extremities. PSYCH: Calm A/P Problem List: (1) Alcohol withdrawal ICD Code: F10.239 Status: Acute (2) Hypercalcemia ICD Code: E83.52 Status: Acute (3) Hypomagnesemia ICD Code: E83.42 Status: Acute (4) Renal insufficiency ICD Code: N28.9 Status: Acute (5) UTI (urinary tract infection) ICD Code: N39.0 Status: Acute Assessment and Plan 65-year-old male with Alcohol intoxication/Withdrawal: Still withdrawing. H/o Heavy Alcohol Abuse w/ Acute Withdrawal, drinks 1 Pint daily, last drink approx 4 days prior to admission, alcohol level negative, continue with IVF, Seizure Precautions, CIWA protocol, MVT/Thiamine/Folate replacement. Analgesics/antiemetics as needed. Improving. Continue to follow - He appears more drowsy today. Will discuss with RN to limit narcotics. Change oxycodone to a lower dose of Lortab as needed only. Hypercalcemia: Ca 11.6, secondary to significant dehydration , resolved with IV fluid hydration. Thrombocytopenia: Likely secondary to chronic alcohol abuse. Continue to monitor. Renal Insufficiency: Resolved with IV fluid. Abnormal urinalysis: Urine culture grew mixed gram-positive, likely contaminant. Antibiotics discontinued. DVT Prophylaxis: SCD/Teds. No chemoprophylaxis due to thrombocytopenia Problem Qualifiers (1) Alcohol withdrawal: Qualified Code: F10.230 - Alcohol withdrawal, uncomplicated (2) UTI (urinary tract infection): Qualified Code: N30.00 - Acute cystitis without hematuria Gabino Quintanilla MD Apr 27, 2016 13:58
[2016-04-27] MEDS: ACETAMINOPHEN/HYDROcodone 325 MG/5 MG TAB PO PRN ×2 (17:01→23:23)
[2016-04-27] MEDS: LORazepam 2 MG/ML VIAL IV PUSH PRN (21:45)
[2016-04-28] VITALS (8 sets, daily range): BP systolic 115–151; BP diastolic 57–81; PULSE 86–104; RESP 18–20; TEMP 97.9–101.3; O2SAT 95–100
[2016-04-28] MEDS: LORazepam 2 MG TAB PO PRN ×2 (01:40→04:03)
[2016-04-28] MEDS: LORazepam 2 MG/ML VIAL IV PUSH PRN ×5 (01:51→10:32)
[2016-04-28] MEDS: THIAMINE HCL 100 MG TAB PO SCH (08:29)
[2016-04-28] MEDS: SODIUM CHLORIDE 0.9% FLUSH 5 ML FLUSH FLUSH SCH ×2 (08:29→21:00)
[2016-04-28] MEDS: PANTOPRAZOLE SOD 40 MG DELAYED RELEASE TAB PO SCH (08:29)
[2016-04-28] MEDS: D5-1/2 NS + KCL 20 MEQ INJ 1,000 ML IV SCH ×2 (08:30→20:00)
--- NOTE | 2016-04-28 14:03 | HHI.PR ---
Subjective Remarks Patient appears somnolent today. He reports that he ate breakfast. Did not eat lunch yet. Has not been out of bed. Objective Vitals Vital Signs Date Time Temp Pulse Resp B/P Pulse Ox O2 Delivery O2 Flow Rate FiO2 04/28/16 12:02 98.8 94 18 132/76 98 04/28/16 08:03 98.6 99 18 133/81 98 04/28/16 04:00 98.0 99 18 133/81 98 04/28/16 00:00 101.3 99 20 115/66 95 04/27/16 20:07 96 04/27/16 20:00 97.8 109 18 113/80 97 04/27/16 16:00 99.1 105 20 135/72 97 I/O 04/27/16 04/27/16 04/27/16 04/28/16 04/28/16 04/28/16 07:00 15:00 23:00 07:00 15:00 23:00 Intake Total 1337 ml 0 ml 1742 ml 240 ml Output Total 250 ml 200 ml Balance 1337 ml -250 ml 1542 ml 240 ml Intake Oral 0 ml 0 ml 240 ml IV Total 1337 ml 1742 ml Output Urine Total 250 ml 200 ml # Voids 0 2 # Bowel Movements 0 0 Result Diagram: 04/27/1663004/27/16630 Objective Remarks GENERAL: Obese male in no acute distress. CARDIOVASCULAR: Normal rate and regular rhythm without murmurs, gallops, or rubs. RESPIRATORY: Good respiratory efforts. Breath sounds equal and clear to auscultation bilaterally. GASTROINTESTINAL: Abdomen soft, non-tender, non-distended. Normal active bowel sounds MUSCULOSKELETAL: Extremities without cyanosis, or edema. NEURO: Somnolent. Moves all 4 extremities. PSYCH: Calm A/P Problem List: (1) Alcohol withdrawal ICD Code: F10.239 Status: Acute (2) Hypercalcemia ICD Code: E83.52 Status: Acute (3) Hypomagnesemia ICD Code: E83.42 Status: Acute (4) Renal insufficiency ICD Code: N28.9 Status: Acute (5) UTI (urinary tract infection) ICD Code: N39.0 Status: Acute Assessment and Plan 65-year-old male with Alcohol intoxication/Withdrawal: Still withdrawing. H/o Heavy Alcohol Abuse w/ Acute Withdrawal, drinks 1 Pint daily, last drink approx 4 days prior to admission, alcohol level negative, continue with IVF, Seizure Precautions, CIWA protocol, MVT/Thiamine/Folate replacement. Analgesics/antiemetics as needed. Improving. Continue to follow - He appears drowsy. Limit Ativan use. - PT to evaluate and get patient out of bed. Acute metabolic encephalopathy: Will obtain Ammonia level. Start Lactulose. minimize sedative use. Hypercalcemia: Ca 11.6, secondary to significant dehydration , resolved with IV fluid hydration. Thrombocytopenia: Likely secondary to chronic alcohol abuse. Continue to monitor. Renal Insufficiency: Resolved with IV fluid. Abnormal urinalysis: Urine culture grew mixed gram-positive, likely contaminant. Antibiotics discontinued. DVT Prophylaxis: SCD/Teds. No chemoprophylaxis due to thrombocytopenia Problem Qualifiers (1) Alcohol withdrawal: Qualified Code: F10.230 - Alcohol withdrawal, uncomplicated (2) UTI (urinary tract infection): Qualified Code: N30.00 - Acute cystitis without hematuria Gabino Quintanilla MD Apr 28, 2016 14:03
[2016-04-28] MEDS: LACTULOSE SYRUP 20 GM/30 ML CUP PO SCH (14:31)
[2016-04-28 17:01] LABS: POTASSIUM 3.8 MEQ/L (3.5-5.1)
[2016-04-29] VITALS (8 sets, daily range): BP systolic 112–143; BP diastolic 56–74; PULSE 84–101; RESP 18–20; TEMP 97.9–99.3; O2SAT 95–99
[2016-04-29] MEDS: ACETAMINOPHEN/HYDROcodone 325 MG/5 MG TAB PO PRN ×2 (00:10→10:14)
[2016-04-29] MEDS: D5-1/2 NS + KCL 20 MEQ INJ 1,000 ML IV SCH ×2 (06:00→15:49)
[2016-04-29 08:31] LABS: HEMATOCRIT 37.2 % (39.0-51.0); MEAN CELL VOLUME 105.4 FL (80.0-100.0); MEAN CORPUSCULAR HEMOGLOBIN 35.9 PG (27.0-34.0); MEAN CORPUSCULAR HGB CONC 34.1 % (32.0-36.0); PLATELET COUNT 156 TH/MM3 (150-450); RED BLOOD COUNT 3.53 MIL/MM3 (4.50-5.90); RED CELL DISTRIBUTION WIDTH 13.5 % (11.6-17.2); REVIEW FLAG FINAL; WHITE BLOOD COUNT 10.9 TH/MM3 (4.0-11.0)
[2016-04-29 08:51] LABS: BICARBONATE 23.8 MEQ/L (21.0-32.0); POTASSIUM 3.7 MEQ/L (3.5-5.1)
[2016-04-29] MEDS: THIAMINE HCL 100 MG TAB PO SCH (10:14)
[2016-04-29] MEDS: PANTOPRAZOLE SOD 40 MG DELAYED RELEASE TAB PO SCH (10:14)
[2016-04-29] MEDS: LACTULOSE SYRUP 20 GM/30 ML CUP PO SCH (10:28)
[2016-04-29] MEDS: SODIUM CHLORIDE 0.9% FLUSH 5 ML FLUSH FLUSH SCH ×2 (10:28→21:00)
--- NOTE | 2016-04-29 16:43 | HHI.PR ---
Subjective Remarks Patient remain encephalopathy. He is confused about place, date and time. Objective Vitals Vital Signs Date Time Temp Pulse Resp B/P Pulse Ox O2 Delivery O2 Flow Rate FiO2 04/29/16 12:02 99.0 84 20 119/56 98 04/29/16 08:03 99.3 91 20 112/65 97 04/29/16 08:00 90 04/29/16 08:00 Room Air 04/29/16 04:00 97.9 96 18 143/58 95 04/29/16 00:00 99.0 92 18 115/62 97 04/28/16 21:45 Room Air 04/28/16 20:00 99.4 97 18 151/57 98 04/28/16 19:11 86 I/O 04/28/16 04/28/16 04/28/16 04/29/16 04/29/16 04/29/16 07:00 15:00 23:00 07:00 15:00 23:00 Intake Total 240 ml 120 ml 862 ml Output Total 100 ml Balance 240 ml 120 ml -100 ml 862 ml Intake Oral 240 ml 120 ml IV Total 862 ml Output Urine Total 100 ml # Voids 2 3 3 # Bowel Movements 0 0 Result Diagram: 04/29/1671704/29/1618 Objective Remarks GENERAL: Obese male in no acute distress. CARDIOVASCULAR: Normal rate and regular rhythm without murmurs, gallops, or rubs. RESPIRATORY: Good respiratory efforts. Breath sounds equal and clear to auscultation bilaterally. GASTROINTESTINAL: Abdomen soft, non-tender, non-distended. Normal active bowel sounds MUSCULOSKELETAL: Extremities without cyanosis, or edema. NEURO: Somnolent. Confused. Moves all 4 extremities. PSYCH: Calm A/P Problem List: (1) Alcohol withdrawal ICD Code: F10.239 Status: Acute (2) Hypercalcemia ICD Code: E83.52 Status: Acute (3) Hypomagnesemia ICD Code: E83.42 Status: Acute (4) Renal insufficiency ICD Code: N28.9 Status: Acute (5) UTI (urinary tract infection) ICD Code: N39.0 Status: Acute Assessment and Plan 65-year-old male with Alcohol intoxication/Withdrawal: Still withdrawing. H/o Heavy Alcohol Abuse w/ Acute Withdrawal, drinks 1 Pint daily, last drink approx 4 days prior to admission, alcohol level negative, continue with IVF, Seizure Precautions, CIWA protocol, MVT/Thiamine/Folate replacement. Analgesics/antiemetics as needed. Improving. Continue to follow - He is still encephalopathy can drowsy, confused. Limit Ativan use. - PT following but he has not been able to participate. Acute metabolic encephalopathy secondary to alcoholism: Continue Lactulose. minimize sedative use. Hypercalcemia: Ca 11.6, secondary to significant dehydration , resolved with IV fluid hydration. Thrombocytopenia: Likely secondary to chronic alcohol abuse. Continue to monitor. Renal Insufficiency: Resolved with IV fluid. Abnormal urinalysis: Urine culture grew mixed gram-positive, likely contaminant. Antibiotics discontinued. DVT Prophylaxis: SCD/Teds. No chemoprophylaxis due to thrombocytopenia Problem Qualifiers (1) Alcohol withdrawal: Qualified Code: F10.230 - Alcohol withdrawal, uncomplicated (2) UTI (urinary tract infection): Qualified Code: N30.00 - Acute cystitis without hematuria Gabino Quintanilla MD Apr 29, 2016 16:43
[2016-04-30] VITALS: BP 124/60; PULSE 92; RESP 18; TEMP 98.4; O2SAT 98
[2016-04-30] MEDS: D5-1/2 NS + KCL 20 MEQ INJ 1,000 ML IV SCH ×3 (02:10→21:29)
[2016-04-30] MEDS: LORazepam 1 MG TAB PO PRN ×2 (05:11→21:40)
[2016-04-30] MEDS ORDERED: LORazepam 2 MG/ML VIAL IM ONE (05:45)
[2016-04-30 08:00] VITALS: BP 107/58; PULSE 101; PULSE 90; RESP 20; O2SAT 99
[2016-04-30] MEDS: SODIUM CHLORIDE 0.9% FLUSH 5 ML FLUSH FLUSH SCH ×2 (09:00→21:29)
[2016-04-30] MEDS: THIAMINE HCL 100 MG TAB PO SCH (09:00)
[2016-04-30] MEDS: LACTULOSE SYRUP 20 GM/30 ML CUP PO SCH (09:00)
[2016-04-30] MEDS: PANTOPRAZOLE SOD 40 MG DELAYED RELEASE TAB PO SCH (09:00)
--- NOTE | 2016-04-30 10:47 | HHI.PR ---
Subjective Remarks Patient still very somnolent but briefly workup. When asked to work with physical therapy and get out of bed, he categorically say no and he will not do that. Did not have a reason. Discussed with RN. He was agitated overnight and was given IM Ativan. He refused lab this morning. Objective Vitals Vital Signs Date Time Temp Pulse Resp B/P Pulse Ox O2 Delivery O2 Flow Rate FiO2 04/30/16 08:00 101 20 107/58 99 04/30/16 00:00 98.4 92 18 124/60 98 04/29/16 21:00 Room Air 04/29/16 21:00 95 04/29/16 20:00 98.6 101 20 133/64 99 04/29/16 16:06 98.7 100 20 134/74 98 04/29/16 12:02 99.0 84 20 119/56 98 I/O 04/29/16 04/29/16 04/29/16 04/30/16 04/30/16 04/30/16 07:00 15:00 23:00 07:00 15:00 23:00 Intake Total 1342 ml 240 ml 0 ml Output Total 100 ml Balance -100 ml 1342 ml 240 ml 0 ml Intake Oral 480 ml 240 ml 0 ml IV Total 862 ml Output Urine Total 100 ml # Voids 3 3 2 2 # Bowel Movements 0 0 0 Result Diagram: 04/29/1671704/29/1618 Objective Remarks GENERAL: Obese male in no acute distress. CARDIOVASCULAR: Normal rate and regular rhythm without murmurs, gallops, or rubs. RESPIRATORY: Good respiratory efforts. Breath sounds equal and clear to auscultation bilaterally. GASTROINTESTINAL: Abdomen soft, non-tender, non-distended. Normal active bowel sounds MUSCULOSKELETAL: Extremities without cyanosis, or edema. NEURO: Somnolent. Refused to answer questions. Moves all 4 extremities. PSYCH: Easily agitated A/P Problem List: (1) Alcohol withdrawal ICD Code: F10.239 Status: Acute (2) Hypercalcemia ICD Code: E83.52 Status: Acute (3) Hypomagnesemia ICD Code: E83.42 Status: Acute (4) Renal insufficiency ICD Code: N28.9 Status: Acute (5) UTI (urinary tract infection) ICD Code: N39.0 Status: Acute Assessment and Plan 65-year-old male with Alcohol intoxication/Withdrawal: H/o Heavy Alcohol Abuse w/ Acute Withdrawal, drinks 1 Pint daily, last drink approx 4 days prior to admission, alcohol level negative, continue with IVF, Seizure Precautions, CIWA protocol, MVT/Thiamine/ Folate replacement. Analgesics/antiemetics as needed. - Patient is having periods of agitation. When awake he is refusing to participate with PT. Just wants to lay in bed. He is urinating in the bed and not getting up to eat or participate with PT. - DW RN to limit Ativan use. Consult Psych for assistance. - Ask case management to attempt to locate family as I am not confident he has capacity. Acute metabolic encephalopathy secondary to alcoholism: Continue Lactulose. minimize sedative use. Hypercalcemia: Ca 11.6, secondary to significant dehydration , resolved with IV fluid hydration. Thrombocytopenia: Likely secondary to chronic alcohol abuse. Continue to monitor. Renal Insufficiency: Resolved with IV fluid. Abnormal urinalysis: Urine culture grew mixed gram-positive, likely contaminant. Antibiotics discontinued. DVT Prophylaxis: SCD/Teds. No chemoprophylaxis due to thrombocytopenia Problem Qualifiers (1) Alcohol withdrawal: Qualified Code: F10.230 - Alcohol withdrawal, uncomplicated (2) UTI (urinary tract infection): Qualified Code: N30.00 - Acute cystitis without hematuria Gabino Quintanilla MD Apr 30, 2016 10:47
[2016-04-30 12:00] VITALS: BP 117/77; PULSE 98; RESP 20; TEMP 100.7; O2SAT 99
[2016-04-30] MEDS: QUEtiapine FUMARATE 25 MG TAB PO SCH ×2 (14:00→21:28)
--- NOTE | 2016-04-30 14:04 | PD.CONS ---
Provisional Diagnosis Admission Date Apr 23, 2016 at 01:42 [place] I. Delirium due to underline medical conditions, probably alcohol withdrawal, Alcohol use disorder, [place] II. deferred History of Present Illness Service Psychiatry Consult Requested By Primary Care Physician No Primary Care Physician HPI The patient is a 65 year old man, psychiatric history of alcohol use disorder, who presents in the ER with alcohol withdrawal, admitted due to hypercalcemia, UTI, AMS and URI, consulted to psychiatric for assessment of capacity. On evaluation patient is lethargic, very confused, unable to elaborate any idea or answer any question in a logical manner, diorite in person , time and place. He denies SI/HI/VH/AH. He seem to be hypoactive, no tremors or agitation observed. Review of Systems ROS Limitations: Uncooperative Past Family Social History Coded Allergies: No Known Allergies (Unverified , 04/22/16) No Active Prescriptions or Reported Meds Current Medications Medications (Trade) Dose Ordered Sig/Simin Route Start Time Stop Time Status Last Admin (Vitamin B1) 100 mg DAILY PO 04/26/16 09:00 04/29/16 10:14 (Romazicon Inj) 0.2 mg Q1M PRN IV PUSH 04/23/16 01:45 (Ativan) 1 mg Q4H PRN PO 04/23/16 01:45 04/27/16 17:01 (Ativan Inj) 1 mg Q4H PRN IV PUSH 04/23/16 01:45 04/27/16 21:45 (Ativan) 2 mg Q2H PRN PO 04/23/16 01:45 04/25/16 15:56 (Ativan Inj) 2 mg Q2H PRN IV PUSH 04/23/16 01:45 04/28/16 10:32 (Ativan Inj) 2 mg Q1H PRN IV PUSH 04/23/16 01:45 (Ativan Inj) 2 mg Q15M PRN IV PUSH 04/23/16 01:45 (Haldol Inj) 2 mg Q15M PRN IM 04/23/16 01:45 (NS Flush) 2 ml UNSCH PRN FLUSH 04/23/16 01:45 (NS Flush) 2 ml BID FLUSH 04/23/16 09:00 04/29/16 21:00 (Zofran Inj) 4 mg Q6H PRN IVP 04/23/16 01:45 04/25/16 05:28 (Dulcolax Supp) 10 mg DAILY PRN NM 04/23/16 01:45 (Tylenol) 650 mg Q6H PRN PO 04/23/16 01:45 (Tums Chew) 1,000 mg TID PRN CHEW 04/23/16 08:00 04/25/16 15:55 Metoclopramide HCl 5 mg 5 mg Q6H PRN IV 04/23/16 09:00 04/25/16 20:45 (D5-1/2 NS + KCl 20 Meq Inj) 1,000 ml @ 100 mls/hr Q10H IV 04/25/16 12:00 04/30/16 12:00 (Catapres) 0.1 mg Q6H PRN PO 04/25/16 11:45 (Cloudcroft 5-325 Mg) 1 tab Q6H PRN PO 04/27/16 14:00 04/29/16 10:14 (Protonix) 40 mg DAILY PO 04/28/16 09:00 04/29/16 10:14 (Lactulose Liq) 30 ml DAILY PO 04/28/16 15:00 04/29/16 10:28 (SEROquel) 50 mg BID PO 04/30/16 14:00 UNV Physical Exam Vital Signs Vital Signs Date Time Temp Pulse Resp B/P Pulse Ox O2 Delivery O2 Flow Rate FiO2 04/30/16 08:00 101 20 107/58 99 04/30/16 00:00 98.4 04/29/16 21:00 Room Air I/O 04/29/16 04/29/16 04/30/16 08:00 16:00 00:00 Intake Total 1342 ml 240 ml Balance 1342 ml 240 ml Mental Status Examination Appearance man, disheveled, malodorous, irritable, uncooperative, confused. Speech: Hesitant Orientation: Person Memory: Impaired (describe) Thought Process: Loose Association Hallucination Type: None Attention and Concentration: Abnormal Suicidal Ideation: No Previous Suicide Attempts: No Homicidal Ideation: No Previous Homicide Attempts: No Insight: Poor Affect if Inappropriate: Labile Mood: Oppositional, Irritable Motor Activity: Normal gait Assessment & Plan Problem List: (1) Delirium due to another medical condition Assessment & Plan: Patient is confused, disoriented, unable to provide any meaningful information for psychiatric assessment. He is most probably delirious due to alcohol withdrawal and underline medical conditions. He does not meet criteria for psychiatric admission. Continue CIWA protocol. Continue Aggressive medical care, periodic awareness, sensory stimulation. Add Seroquel 50 mg bid for agitation, behavior control and sleep. Patient does not have capacity to leave AMA at this moment. Will follow up. ICD Code: F05 Assessment & Plan Estimated LOS: days Jovi Quach MD Apr 30, 2016 14:04
[2016-04-30 14:59] LABS: HEMATOCRIT 34.6 % (39.0-51.0); MEAN CELL VOLUME 105.2 FL (80.0-100.0); MEAN CORPUSCULAR HEMOGLOBIN 36.1 PG (27.0-34.0); MEAN CORPUSCULAR HGB CONC 34.3 % (32.0-36.0); PLATELET COUNT 207 TH/MM3 (150-450); RED BLOOD COUNT 3.29 MIL/MM3 (4.50-5.90); RED CELL DISTRIBUTION WIDTH 13.9 % (11.6-17.2); REVIEW FLAG FINAL; WHITE BLOOD COUNT 9.7 TH/MM3 (4.0-11.0)
[2016-04-30 15:47] LABS: BICARBONATE 21.7 MEQ/L (21.0-32.0); POTASSIUM 3.7 MEQ/L (3.5-5.1)
[2016-04-30 16:00] VITALS: BP 113/71; PULSE 80; RESP 20; TEMP 98; O2SAT 100
[2016-04-30 16:08] LABS: CALCIUM-PROTEIN CORRECTED 7.7 MG/DL (8.5-10.1)
[2016-04-30 20:00] VITALS: BP 118/78; PULSE 110; RESP 22; TEMP 99.6; O2SAT 99
[2016-05-01] VITALS: BP 138/63; PULSE 117; RESP 22; TEMP 99.8; O2SAT 99
[2016-05-01 04:00] VITALS: BP 119/65; PULSE 102; RESP 22; TEMP 99.9; O2SAT 100
[2016-05-01] MEDS: LORazepam 2 MG/ML VIAL IV PUSH PRN (06:28)
[2016-05-01 07:14] LABS: BICARBONATE 19.1 MEQ/L (21.0-32.0)
[2016-05-01 08:00] VITALS: BP 135/65; PULSE 103; RESP 20; TEMP 98.2; O2SAT 99
[2016-05-01] MEDS: LORazepam 1 MG TAB PO PRN ×2 (09:03→15:23)
[2016-05-01] MEDS: SODIUM CHLORIDE 0.9% FLUSH 5 ML FLUSH FLUSH SCH ×2 (09:04→22:57)
[2016-05-01] MEDS: LACTULOSE SYRUP 20 GM/30 ML CUP PO SCH (09:04)
[2016-05-01] MEDS: THIAMINE HCL 100 MG TAB PO SCH (09:04)
[2016-05-01] MEDS: PANTOPRAZOLE SOD 40 MG DELAYED RELEASE TAB PO SCH (09:04)
[2016-05-01] MEDS: QUEtiapine FUMARATE 25 MG TAB PO SCH ×2 (09:04→22:57)
[2016-05-01] MEDS: D5-1/2 NS + KCL 20 MEQ INJ 1,000 ML IV SCH ×2 (09:05→16:54)
--- NOTE | 2016-05-01 09:17 | HHI.PR ---
Subjective Remarks Still somewhat lethargic and confused but slightly more awake today. He sat up with assistance to eat breakfast. Very shaky. Objective Vitals Vital Signs Date Time Temp Pulse Resp B/P Pulse Ox O2 Delivery O2 Flow Rate FiO2 05/01/16 04:00 99.9 102 22 119/65 100 05/01/16 00:00 99.8 117 22 138/63 99 04/30/16 20:40 Room Air 04/30/16 20:00 99.6 110 22 118/78 99 04/30/16 16:00 98.0 80 20 113/71 100 04/30/16 12:00 100.7 98 20 117/77 99 I/O 04/30/16 04/30/16 04/30/16 05/01/16 05/01/16 05/01/16 07:00 15:00 23:00 07:00 15:00 23:00 Intake Total 0 ml 0 ml 1448 ml Output Total 150 ml 600 ml Balance 0 ml -150 ml 848 ml Intake Oral 0 ml 0 ml 220 ml IV Total 1228 ml Output Urine Total 150 ml 600 ml # Voids 2 # Bowel Movements 0 0 0 Result Diagram: 04/30/16 1400 05/01/16 0627 Objective Remarks GENERAL: Obese male in no acute distress. CARDIOVASCULAR: Normal rate and regular rhythm without murmurs, gallops, or rubs. RESPIRATORY: Good respiratory efforts. Breath sounds equal and clear to auscultation bilaterally. GASTROINTESTINAL: Abdomen soft, non-tender, non-distended. Normal active bowel sounds MUSCULOSKELETAL: Extremities without cyanosis, or edema. NEURO: Somewhat lethargic, confused, tremulous. Moves all 4 extremities. PSYCH: Calm A/P Problem List: (1) Alcohol withdrawal ICD Code: F10.239 Status: Acute (2) Hypercalcemia ICD Code: E83.52 Status: Acute (3) Hypomagnesemia ICD Code: E83.42 Status: Acute (4) Renal insufficiency ICD Code: N28.9 Status: Acute (5) UTI (urinary tract infection) ICD Code: N39.0 Status: Acute Assessment and Plan 65-year-old male with Alcohol intoxication/Withdrawal: H/o Heavy Alcohol Abuse w/ Acute Withdrawal, drinks 1 Pint daily, last drink approx 4 days prior to admission, alcohol level negative, continue with IVF, Seizure Precautions, CIWA protocol, MVT/Thiamine/ Folate replacement. Analgesics/antiemetics as needed. - Patient is having periods of agitation. When awake he has been refusing to participate with PT. Just wants to lay in bed. He is urinating in the bed and not getting up to eat or participate with PT. - LAURA RN to limit Ativan use. Appreciate psychiatry following. Seroquel was added. Acute metabolic encephalopathy secondary to alcoholism: Continue Lactulose. minimize sedative use. Hypercalcemia: Ca 11.6, secondary to significant dehydration , resolved with IV fluid hydration. Thrombocytopenia: Likely secondary to chronic alcohol abuse. Continue to monitor. Renal Insufficiency: Resolved with IV fluid. Abnormal urinalysis: Urine culture grew mixed gram-positive, likely contaminant. Antibiotics discontinued. DVT Prophylaxis: SCD/Teds. No chemoprophylaxis due to thrombocytopenia Discharge Planning Patient will need senior care facility but he has no funding. Case management following. Problem Qualifiers (1) Alcohol withdrawal: Qualified Code: F10.230 - Alcohol withdrawal, uncomplicated (2) UTI (urinary tract infection): Qualified Code: N30.00 - Acute cystitis without hematuria Gabino Quintanilla MD May 01, 2016 09:17
[2016-05-01 09:53] LABS: HEMATOCRIT 34.4 % (39.0-51.0); MEAN CELL VOLUME 101.2 FL (80.0-100.0); MEAN CORPUSCULAR HEMOGLOBIN 35.1 PG (27.0-34.0); MEAN CORPUSCULAR HGB CONC 34.7 % (32.0-36.0); PLATELET COUNT 222 TH/MM3 (150-450); RED CELL DISTRIBUTION WIDTH 13.9 % (11.6-17.2); REVIEW FLAG FINAL; WHITE BLOOD COUNT 9.8 TH/MM3 (4.0-11.0)
[2016-05-01 12:00] VITALS: BP 107/63; PULSE 102; RESP 20; TEMP 98.3; O2SAT 100
[2016-05-01 16:00] VITALS: BP 132/74; PULSE 97; RESP 20; TEMP 98.7; O2SAT 97
[2016-05-01 20:00] VITALS: BP 127/69; PULSE 107; RESP 18; TEMP 99.3; O2SAT 96
[2016-05-01] MEDS: ACETAMINOPHEN/HYDROcodone 325 MG/5 MG TAB PO PRN (22:57)
[2016-05-02] VITALS: BP 113/68; PULSE 97; RESP 18; TEMP 98.6; O2SAT 99
[2016-05-02 04:00] VITALS: BP 135/64; PULSE 97; RESP 18; TEMP 98.3; O2SAT 96
[2016-05-02] MEDS: D5-1/2 NS + KCL 20 MEQ INJ 1,000 ML IV SCH ×2 (04:00→13:05)
[2016-05-02] MEDS: SODIUM CHLORIDE 0.9% FLUSH 5 ML FLUSH FLUSH SCH ×2 (07:46→21:00)
[2016-05-02] MEDS: THIAMINE HCL 100 MG TAB PO SCH (07:46)
[2016-05-02] MEDS: PANTOPRAZOLE SOD 40 MG DELAYED RELEASE TAB PO SCH (07:46)
[2016-05-02] MEDS: QUEtiapine FUMARATE 25 MG TAB PO SCH ×2 (07:46→22:14)
[2016-05-02] MEDS: LACTULOSE SYRUP 20 GM/30 ML CUP PO SCH (07:46)
[2016-05-02] MEDS: ACETAMINOPHEN/HYDROcodone 325 MG/5 MG TAB PO PRN ×2 (07:59→22:14)
[2016-05-02 08:00] VITALS: BP 111/61; PULSE 106; RESP 20; TEMP 98.2; O2SAT 93
[2016-05-02 10:35] LABS: HEMATOCRIT 32.4 % (39.0-51.0); MEAN CORPUSCULAR HEMOGLOBIN 35.1 PG (27.0-34.0); MEAN CORPUSCULAR HGB CONC 34.4 % (32.0-36.0); PLATELET COUNT 237 TH/MM3 (150-450); RED BLOOD COUNT 3.17 MIL/MM3 (4.50-5.90); RED CELL DISTRIBUTION WIDTH 14.2 % (11.6-17.2); REVIEW FLAG FINAL; WHITE BLOOD COUNT 7.4 TH/MM3 (4.0-11.0)
[2016-05-02 10:56] LABS: BICARBONATE 22.4 MEQ/L (21.0-32.0); POTASSIUM 3.4 MEQ/L (3.5-5.1)
[2016-05-02 12:00] VITALS: BP 126/68; PULSE 106; RESP 20; TEMP 98.1; O2SAT 98
--- NOTE | 2016-05-02 13:22 | HHI.PR ---
Subjective Remarks Patient is more awake today. He still generally weak. He complains of back pain. Still mildly confused. Objective Vitals Vital Signs Date Time Temp Pulse Resp B/P Pulse Ox O2 Delivery O2 Flow Rate FiO2 05/02/16 08:00 98.2 106 20 111/61 93 05/02/16 04:00 98.3 97 18 135/64 96 05/02/16 00:00 98.6 97 18 113/68 99 05/01/16 20:00 99.3 107 18 127/69 96 05/01/16 16:00 98.7 97 20 132/74 97 I/O 05/01/16 05/01/16 05/01/16 05/02/16 05/02/16 05/02/16 07:00 15:00 23:00 07:00 15:00 23:00 Intake Total 1851 ml 240 ml 100 ml Balance 1851 ml 240 ml 100 ml Intake Oral 240 ml 240 ml 100 ml IV Total 1611 ml # Voids 2 1 1 # Bowel Movements 1 0 0 Result Diagram: 05/02/1691105/02/16911 Objective Remarks GENERAL: Obese male in no acute distress. CARDIOVASCULAR: Normal rate and regular rhythm without murmurs, gallops, or rubs. RESPIRATORY: Good respiratory efforts. Breath sounds equal and clear to auscultation bilaterally. GASTROINTESTINAL: Abdomen soft, non-tender, non-distended. Normal active bowel sounds MUSCULOSKELETAL: Extremities without cyanosis, or edema. NEURO: Somewhat lethargic, confused, tremulous. Moves all 4 extremities. PSYCH: Calm A/P Problem List: (1) Alcohol withdrawal ICD Code: F10.239 Status: Acute (2) Hypercalcemia ICD Code: E83.52 Status: Acute (3) Hypomagnesemia ICD Code: E83.42 Status: Acute (4) Renal insufficiency ICD Code: N28.9 Status: Acute (5) UTI (urinary tract infection) ICD Code: N39.0 Status: Acute Assessment and Plan 65-year-old male with Alcohol intoxication/Withdrawal: H/o Heavy Alcohol Abuse w/ Acute Withdrawal, drinks 1 Pint daily, last drink approx 4 days prior to admission, alcohol level negative, continue with IVF, Seizure Precautions, CIWA protocol, MVT/Thiamine/ Folate replacement. Analgesics/antiemetics as needed. -More awake. Will need intensive physical therapy. -Limit sedating medications. Appreciate psychiatry following. Seroquel was added. Acute metabolic encephalopathy secondary to alcoholism: Continue Lactulose. minimize sedative use. Hypercalcemia: Ca 11.6, secondary to significant dehydration , resolved with IV fluid hydration. Thrombocytopenia: Likely secondary to chronic alcohol abuse. Continue to monitor. Renal Insufficiency: Resolved with IV fluid. Abnormal urinalysis: Urine culture grew mixed gram-positive, likely contaminant. Antibiotics discontinued. DVT Prophylaxis: SCD/Teds. No chemoprophylaxis due to thrombocytopenia Discharge Planning Severely deconditioned. Will need to continue physical therapy. Patient would benefit from a long term facility but he has no funding. Case management following. Problem Qualifiers (1) Alcohol withdrawal: Qualified Code: F10.230 - Alcohol withdrawal, uncomplicated (2) UTI (urinary tract infection): Qualified Code: N30.00 - Acute cystitis without hematuria Gabino Quintanilla MD May 02, 2016 13:22
[2016-05-02 16:00] VITALS: BP 156/79; PULSE 114; RESP 20; TEMP 98.6; O2SAT 100
[2016-05-02] MEDS: LORazepam 1 MG TAB PO PRN (16:30)
[2016-05-02 20:00] VITALS: BP 119/81; PULSE 105; RESP 18; TEMP 99.8; O2SAT 98
[2016-05-03] VITALS (7 sets, daily range): BP systolic 111–140; BP diastolic 63–73; PULSE 88–104; RESP 18–22; TEMP 97.5–98.6; O2SAT 93–99
[2016-05-03] MEDS: D5-1/2 NS + KCL 20 MEQ INJ 1,000 ML IV SCH
[2016-05-03 07:54] LABS: BICARBONATE 22.2 MEQ/L (21.0-32.0); POTASSIUM 3.6 MEQ/L (3.5-5.1)
[2016-05-03] MEDS: PANTOPRAZOLE SOD 40 MG DELAYED RELEASE TAB PO SCH (09:00)
[2016-05-03] MEDS: QUEtiapine FUMARATE 25 MG TAB PO SCH ×2 (09:00→20:50)
[2016-05-03] MEDS: LACTULOSE SYRUP 20 GM/30 ML CUP PO SCH (09:00)
[2016-05-03] MEDS: SODIUM CHLORIDE 0.9% FLUSH 5 ML FLUSH FLUSH SCH ×2 (09:00→20:50)
[2016-05-03] MEDS: THIAMINE HCL 100 MG TAB PO SCH (09:00)
--- NOTE | 2016-05-03 13:46 | HHI.PR ---
Subjective Remarks Patient is awake and alert today. He reports feeling better. Still not eating much. Very weak. Less tremulous. Objective Vitals Vital Signs Date Time Temp Pulse Resp B/P Pulse Ox O2 Delivery O2 Flow Rate FiO2 05/03/16 12:04 98.1 92 22 126/68 99 05/03/16 08:04 98.3 94 22 128/67 99 05/03/16 08:03 98.3 94 22 128/67 99 05/03/16 04:00 98.6 88 18 112/65 96 05/03/16 00:00 97.7 102 18 111/73 93 05/02/16 20:00 99.8 105 18 119/81 98 05/02/16 16:00 98.6 114 20 156/79 100 I/O 05/02/16 05/02/16 05/02/16 05/03/16 05/03/16 05/03/16 07:00 15:00 23:00 07:00 15:00 23:00 Intake Total 100 ml 779 ml 100 ml 100 ml Output Total 125 ml Balance 100 ml 779 ml 100 ml -25 ml Intake Oral 100 ml 240 ml 100 ml 100 ml IV Total 539 ml Output Urine Total 125 ml # Voids 1 1 # Bowel Movements 0 1 0 Result Diagram: 05/02/16 0912 05/03/16 0637 Objective Remarks GENERAL: Obese male in no acute distress. CARDIOVASCULAR: Normal rate and regular rhythm without murmurs, gallops, or rubs. RESPIRATORY: Good respiratory efforts. Breath sounds equal and clear to auscultation bilaterally. GASTROINTESTINAL: Abdomen soft, non-tender, non-distended. Normal active bowel sounds MUSCULOSKELETAL: Extremities without cyanosis, or edema. NEURO: Mild confusion at times but aware of place and time. Moves all 4 extremities. Normal speech. PSYCH: Calm A/P Problem List: (1) Alcohol withdrawal ICD Code: F10.239 Status: Acute (2) Hypercalcemia ICD Code: E83.52 Status: Acute (3) Hypomagnesemia ICD Code: E83.42 Status: Acute (4) Renal insufficiency ICD Code: N28.9 Status: Acute (5) UTI (urinary tract infection) ICD Code: N39.0 Status: Acute Assessment and Plan 65-year-old male with Alcohol intoxication/Withdrawal: H/o Heavy Alcohol Abuse w/ Acute Withdrawal, drinks 1 Pint daily, last drink approx 4 days prior to admission, alcohol level negative, Seizure Precautions, CIWA protocol, MVT/Thiamine/Folate replacement. Analgesics/antiemetics as needed. -More awake. Will need intensive physical therapy. -Limit sedating medications. Appreciate psychiatry following. Seroquel was added. Acute metabolic encephalopathy secondary to alcoholism: Resolving. Continue Lactulose. minimize sedative use. Hypercalcemia: Ca 11.6, secondary to significant dehydration , resolved with IV fluid hydration. Thrombocytopenia: Likely secondary to chronic alcohol abuse. Continue to monitor. Renal Insufficiency: Resolved with IV fluid. Abnormal urinalysis: Urine culture grew mixed gram-positive, likely contaminant. Antibiotics discontinued. DVT Prophylaxis: SCD/Teds. No chemoprophylaxis due to thrombocytopenia Discharge Planning Severely deconditioned. Will need to continue physical therapy. Patient would benefit from shelter facility but he has no funding. Case management following. Problem Qualifiers (1) Alcohol withdrawal: Qualified Code: F10.230 - Alcohol withdrawal, uncomplicated (2) UTI (urinary tract infection): Qualified Code: N30.00 - Acute cystitis without hematuria Gabino Quintanilla MD May 03, 2016 13:46
[2016-05-03] MEDS: ACETAMINOPHEN/HYDROcodone 325 MG/5 MG TAB PO PRN (20:50)
[2016-05-04] VITALS: BP 103/60; PULSE 100; RESP 18; TEMP 98.1; O2SAT 98
[2016-05-04 04:00] VITALS: BP 112/64; PULSE 93; RESP 18; TEMP 98.4; O2SAT 96
[2016-05-04 08:00] VITALS: BP 106/62; PULSE 86; RESP 16; TEMP 98.5; O2SAT 97
[2016-05-04] MEDS: LACTULOSE SYRUP 20 GM/30 ML CUP PO SCH (08:56)
[2016-05-04] MEDS: THIAMINE HCL 100 MG TAB PO SCH (08:56)
[2016-05-04] MEDS: SODIUM CHLORIDE 0.9% FLUSH 5 ML FLUSH FLUSH SCH ×2 (08:56→08:58)
[2016-05-04] MEDS: PANTOPRAZOLE SOD 40 MG DELAYED RELEASE TAB PO SCH (08:56)
[2016-05-04] MEDS: QUEtiapine FUMARATE 25 MG TAB PO SCH ×2 (08:56→21:28)
[2016-05-04 09:10] LABS: HEMATOCRIT 34.4 % (39.0-51.0); MEAN CELL VOLUME 102.4 FL (80.0-100.0); MEAN CORPUSCULAR HEMOGLOBIN 35.1 PG (27.0-34.0); MEAN CORPUSCULAR HGB CONC 34.2 % (32.0-36.0); PLATELET COUNT 253 TH/MM3 (150-450); RED BLOOD COUNT 3.36 MIL/MM3 (4.50-5.90); RED CELL DISTRIBUTION WIDTH 14.6 % (11.6-17.2); REVIEW FLAG FINAL; WHITE BLOOD COUNT 7.8 TH/MM3 (4.0-11.0)
[2016-05-04 09:31] LABS: POTASSIUM 3.4 MEQ/L (3.5-5.1)
[2016-05-04 09:55] LABS: CALCIUM-PROTEIN CORRECTED 7.5 MG/DL (8.5-10.1)
[2016-05-04] MEDS ORDERED: POTASSIUM CHLORIDE 20 MEQ CONTROLLED RELEASE TAB PO ONE (11:00)
--- NOTE | 2016-05-04 11:19 | HHI.PR ---
Subjective Remarks Follow up: Alcohol intoxication/withdrawal/abuse, electrolyte imbalance, and thrombocytopenia. Patient resting in bed able to awake to voice. Patient A&O to person place and year but confused as to details. Patient offers no specific complaints, reports feeling comfortable. Patient denies SOB, chest pain, N/V/D/C, fevers or chills. Objective Vitals Vital Signs Date Time Temp Pulse Resp B/P Pulse Ox O2 Delivery O2 Flow Rate FiO2 05/04/16 08:00 98.5 86 16 106/62 97 05/04/16 04:00 98.4 93 18 112/64 96 05/04/16 00:00 98.1 100 18 103/60 98 05/03/16 20:00 97.5 104 18 132/63 95 05/03/16 16:03 97.5 95 20 140/66 99 05/03/16 12:04 98.1 92 22 126/68 99 I/O 05/03/16 05/03/16 05/03/16 05/04/16 05/04/16 05/04/16 07:00 15:00 23:00 07:00 15:00 23:00 Intake Total 100 ml 360 ml 120 ml Output Total 125 ml Balance -25 ml 360 ml 120 ml Intake Oral 100 ml 360 ml 120 ml Output Urine Total 125 ml # Voids 4 1 1 # Bowel Movements 0 1 1 0 Result Diagram: 05/04/16 0850 05/04/16 0850 Objective Remarks GENERAL: Obese male in no acute distress. CARDIOVASCULAR: Normal rate and regular rhythm without murmurs, gallops, or rubs. RESPIRATORY: Good respiratory efforts. Breath sounds equal and clear to auscultation bilaterally. GASTROINTESTINAL: Abdomen soft, non-tender, non-distended. Normal active bowel sounds MUSCULOSKELETAL: Extremities without cyanosis, or edema. NEURO: Mild confusion at times but aware of place and time. Moves all 4 extremities. Normal speech. PSYCH: Calm A/P Problem List: (1) Alcohol withdrawal ICD Code: F10.239 Status: Acute (2) Hypercalcemia ICD Code: E83.52 Status: Acute (3) Hypomagnesemia ICD Code: E83.42 Status: Acute (4) Renal insufficiency ICD Code: N28.9 Status: Acute (5) UTI (urinary tract infection) ICD Code: N39.0 Status: Acute Assessment and Plan 65-year-old male with Alcohol intoxication/Withdrawal: H/o Heavy Alcohol Abuse w/ Acute Withdrawal, drinks 1 Pint daily, last drink approx 4 days prior to admission, alcohol level negative, Seizure Precautions, CIWA protocol, MVT/Thiamine/Folate replacement. Analgesics/antiemetics as needed. -More awake. Will need intensive physical therapy. -Limit sedating medications. Appreciate psychiatry following. Seroquel 50 mg BID Acute metabolic encephalopathy secondary to alcoholism: Resolving. Continue Lactulose. Minimize sedative use. Hypercalcemia: now with hypocalcemia corrected calcium level 7.5. replaced -recheck in am Hypokalemia/ hypophosphatemia Possibly s/t decreased PO intake. - replete and monitor. Thrombocytopenia Likely secondary to chronic alcohol abuse. - Continue to monitor intermittently. Deconditioned Patient in need of extensive, PT unable to find placement at rehab/SNF - PT seven days a week. - add OT. DVT Prophylaxis: SCD/Teds. No chemoprophylaxis due to thrombocytopenia Discharge Planning Severely deconditioned. Will need to continue physical therapy. Patient would benefit from intermediate facility but he has no funding. Case management following. Discussed with patient and nursing Written by Marissa Sales, acting as scribe for Dr. Parry on 05/04/16 at 11:26. Attending Statement The documentation accurately reflects the work performed [id number] by me on at 11:26. Problem Qualifiers (1) Alcohol withdrawal: Qualified Code: F10.230 - Alcohol withdrawal, uncomplicated (2) UTI (urinary tract infection): Qualified Code: N30.00 - Acute cystitis without hematuria Marissa Sales May 04, 2016 11:19 Suman Parry DO May 04, 2016 13:17
[2016-05-04 11:45] LABS: MAGNESIUM 1.7 MG/DL (1.5-2.5)
[2016-05-04 12:00] VITALS: BP 110/58; PULSE 93; RESP 12; TEMP 97.6; O2SAT 97
[2016-05-04] MEDS ORDERED: CALCIUM GLUCONATE INJ 1 GM in SODIUM CHLORIDE 0.9% INJ 100 ML IV ONE (13:00)
[2016-05-04] MEDS: MAGNESIUM SULFATE 1 GM PREMIX 100 ML IV SCH ×2 (13:49→14:20)
[2016-05-04] MEDS ORDERED: POTASSIUM PHOSPHATE INJ 30 MMOL in SODIUM CHLOR 0.9% 250 ML INJ 250 ML IV ONE (16:00)
[2016-05-04 20:00] VITALS: BP 108/67; PULSE 91; RESP 18; TEMP 98.6; O2SAT 98
[2016-05-05] VITALS: BP 102/58; PULSE 95; RESP 18; TEMP 98.6; O2SAT 95
[2016-05-05 04:00] VITALS: BP 110/64; PULSE 86; RESP 18; TEMP 98.7; O2SAT 97
[2016-05-05 08:00] VITALS: BP 150/72; PULSE 82; RESP 16; TEMP 98.4; O2SAT 98
[2016-05-05] MEDS: SODIUM CHLORIDE 0.9% FLUSH 5 ML FLUSH FLUSH SCH ×2 (09:05→21:30)
[2016-05-05] MEDS: PANTOPRAZOLE SOD 40 MG DELAYED RELEASE TAB PO SCH (09:05)
[2016-05-05] MEDS: QUEtiapine FUMARATE 25 MG TAB PO SCH ×2 (09:05→21:30)
[2016-05-05] MEDS: LACTULOSE SYRUP 20 GM/30 ML CUP PO SCH (09:05)
[2016-05-05] MEDS: THIAMINE HCL 100 MG TAB PO SCH (09:05)
[2016-05-05] MEDS: ACETAMINOPHEN/HYDROcodone 325 MG/5 MG TAB PO PRN ×2 (09:09→17:26)
[2016-05-05 12:00] VITALS: BP 165/79; PULSE 100; RESP 22; TEMP 97.8; O2SAT 98
[2016-05-05 16:00] VITALS: BP 133/109; PULSE 111; RESP 20; TEMP 97.8; O2SAT 100
[2016-05-05] MEDS ORDERED: ENALAPRILAT 1.25 MG/ML VIAL IV PUSH PRN (16:00)
--- NOTE | 2016-05-05 16:10 | HHI.PR ---
Subjective Remarks The patient was not satisfied with the treatment plan. He said he needs to be on continuous IV medications. He said he did not like working with physical therapy with the regulations they have. He said that his legs have not been swollen before. He said that he knew he was in [place]. Discussed with case management. Objective Vitals Vital Signs Date Time Temp Pulse Resp B/P Pulse Ox O2 Delivery O2 Flow Rate FiO2 05/05/16 12:00 97.8 100 22 165/79 98 05/05/16 08:00 98.4 82 16 150/72 98 05/05/16 04:00 98.7 86 18 110/64 97 05/05/16 00:00 98.6 95 18 102/58 95 05/04/16 20:00 98.6 91 18 108/67 98 I/O 05/04/16 05/04/16 05/04/16 05/05/16 05/05/16 05/05/16 07:00 15:00 23:00 07:00 15:00 23:00 Intake Total 360 ml 120 ml 120 ml 242 ml Output Total 100 ml Balance 260 ml 120 ml 120 ml 242 ml Intake Oral 360 ml 120 ml 120 ml 240 ml IV Total 2 ml Output Urine Total 100 ml # Voids 1 1 1 2 # Bowel Movements 0 1 0 0 0 Result Diagram: 05/04/16 0850 05/04/16 0850 Objective Remarks GENERAL: No acute distress. HEENT: NC, AT. CARDIOVASCULAR: Tachycardic without murmurs, gallops, or rubs. RESPIRATORY: Good respiratory efforts. Breath sounds equal and clear to auscultation bilaterally. GASTROINTESTINAL: Abdomen soft, non-tender, non-distended. Normal active bowel sounds MUSCULOSKELETAL: Extremities without cyanosis. 2-3+ pitting edema. NEURO: Mild confusion at times but aware of place. Moves all 4 extremities. Normal speech. PSYCH: Slightly agitated. Medications and IVs Current Medications Medications (Trade) Dose Ordered Sig/Simin Route Start Time Stop Time Status Last Admin (Vitamin B1) 100 mg DAILY PO 04/26/16 09:00 05/05/16 09:05 (Romazicon Inj) 0.2 mg Q1M PRN IV PUSH 04/23/16 01:45 (Ativan) 1 mg Q4H PRN PO 04/23/16 01:45 05/02/16 16:30 (Ativan Inj) 1 mg Q4H PRN IV PUSH 04/23/16 01:45 04/27/16 21:45 (Ativan) 2 mg Q2H PRN PO 04/23/16 01:45 04/25/16 15:56 (Ativan Inj) 2 mg Q2H PRN IV PUSH 04/23/16 01:45 05/01/16 06:28 (Ativan Inj) 2 mg Q1H PRN IV PUSH 04/23/16 01:45 (Ativan Inj) 2 mg Q15M PRN IV PUSH 04/23/16 01:45 (Haldol Inj) 2 mg Q15M PRN IM 04/23/16 01:45 (NS Flush) 2 ml UNSCH PRN FLUSH 04/23/16 01:45 (NS Flush) 2 ml BID FLUSH 04/23/16 09:00 05/05/16 09:05 (Zofran Inj) 4 mg Q6H PRN IVP 04/23/16 01:45 04/25/16 05:28 (Dulcolax Supp) 10 mg DAILY PRN CA 04/23/16 01:45 (Tylenol) 650 mg Q6H PRN PO 04/23/16 01:45 (Tums Chew) 1,000 mg TID PRN CHEW 04/23/16 08:00 04/25/16 15:55 (Reglan Inj) 5 mg Q6H PRN IV 04/23/16 09:00 04/25/16 20:45 (Catapres) 0.1 mg Q6H PRN PO 04/25/16 11:45 (Kanosh 5-325 Mg) 1 tab Q6H PRN PO 04/27/16 14:00 05/05/16 09:09 (Protonix) 40 mg DAILY PO 04/28/16 09:00 05/05/16 09:05 (Lactulose Liq) 30 ml DAILY PO 04/28/16 15:00 05/05/16 09:05 (SEROquel) 50 mg BID PO 04/30/16 14:00 05/05/16 09:05 A/P Problem List: (1) Alcohol withdrawal ICD Code: F10.239 Status: Acute (2) Hypercalcemia ICD Code: E83.52 Status: Acute (3) Hypomagnesemia ICD Code: E83.42 Status: Acute (4) Renal insufficiency ICD Code: N28.9 Status: Acute (5) UTI (urinary tract infection) ICD Code: N39.0 Status: Acute Assessment and Plan Alcohol intoxication/ Withdrawal H/o heavy alcohol abuse w/ acute withdrawal, drinks 1 pint daily, last drink approx 4 days prior to admission, alcohol level negative. - Seizure Precautions, CIWA protocol. - MVT/Thiamine/Folate replacement. - Analgesics/antiemetics as needed. - physical therapy. - Appreciate psychiatry following. Seroquel 50 mg BID. Acute metabolic encephalopathy Likely secondary to alcoholism. - Continue Lactulose. - Minimize sedative use. - check B12, TSH levels. Hypokalemia/ hypophosphatemia Possibly s/t decreased PO intake. - replete and monitor. Thrombocytopenia Likely secondary to chronic alcohol abuse. - Continue to monitor intermittently. Deconditioned S/t alcohol abuse. - PT seven days a week. - add OT. Dyspnea Pt endorses dyspnea on exertion. Has pitting LE edema. - check a BNP and CXR. - nebs and oxygen as needed. DVT Prophylaxis: SCD/Teds. No chemoprophylaxis due to thrombocytopenia. Discharge Planning D/c home when electrolytes are stable, mental status improved and breathing better. Problem Qualifiers (1) Alcohol withdrawal: Qualified Code: F10.230 - Alcohol withdrawal, uncomplicated (2) UTI (urinary tract infection): Qualified Code: N30.00 - Acute cystitis without hematuria Suman Parry DO May 05, 2016 16:10
--- NOTE | 2016-05-05 16:32 | RADRPT ---
EXAM DATE/TIME: 05/05/2016 16:11 [facility] COMPARISON: No previous studies available for comparison. INDICATIONS : Short of breath. MEDICAL HISTORY : None. SURGICAL HISTORY : None. ENCOUNTER: Initial ACUITY: 1 day PAIN SCORE: 0/10 LOCATION: Bilateral chest FINDINGS: The heart is enlarged. Pulmonary vascularity is normal. Portions of the bony skeleton visualized ar e unremarkable. CONCLUSION: Mild compensated cardiomegaly. Carlos Schulz MD FACR on May 05, 2016 at 16:30 Board Certified Radiologist. This report was verified electronically.
[2016-05-05] MEDS: THIAMINE INJ 100 MG in SODIUM CHLORIDE 0.9% INJ 100 ML IV SCH (17:25)
[2016-05-05 20:00] VITALS: BP 123/60; PULSE 98; RESP 19; TEMP 98; O2SAT 98
[2016-05-06 00:18] VITALS: BP 111/60; PULSE 97; RESP 18; TEMP 98.4; O2SAT 98
[2016-05-06 04:00] VITALS: BP 114/62; PULSE 90; RESP 18; TEMP 98; O2SAT 98
[2016-05-06 08:00] VITALS: BP 94/58; PULSE 87; RESP 20; TEMP 98.3; O2SAT 99
[2016-05-06 08:35] LABS: BICARBONATE 22.8 MEQ/L (21.0-32.0); MAGNESIUM 1.9 MG/DL (1.5-2.5); POTASSIUM 3.7 MEQ/L (3.5-5.1)
[2016-05-06] MEDS ORDERED: POTASSIUM CHLORIDE 25 MEQ EFFERVESCENT TAB PO ONE (09:15)
[2016-05-06] MEDS: FUROSEMIDE 40 MG TAB PO SCH (09:42)
[2016-05-06] MEDS: PANTOPRAZOLE SOD 40 MG DELAYED RELEASE TAB PO SCH (09:44)
[2016-05-06] MEDS: LACTULOSE SYRUP 20 GM/30 ML CUP PO SCH ×2 (09:44→17:12)
[2016-05-06] MEDS: QUEtiapine FUMARATE 25 MG TAB PO SCH ×2 (09:45→21:58)
[2016-05-06] MEDS: THIAMINE INJ 100 MG in SODIUM CHLORIDE 0.9% INJ 100 ML IV SCH (09:45)
[2016-05-06] MEDS: SODIUM CHLORIDE 0.9% FLUSH 5 ML FLUSH FLUSH SCH ×2 (09:48→21:58)
[2016-05-06 12:00] VITALS: BP 131/73; PULSE 93; RESP 20; TEMP 98; O2SAT 98
--- NOTE | 2016-05-06 13:22 | RADRPT ---
EXAM DATE/TIME: 05/06/2016 10:12 [facility] COMPARISON: No previous studies available for comparison. INDICATIONS : Cirrhosis. MEDICAL HISTORY : Deep venous thrombosis. Seizures. Head trauma. Ulcer. SURGICAL HISTORY : Hernia repair. Vasectomy. Back surgery. ENCOUNTER: Initial ACUITY: 1 day PAIN SCORE: 3/10 LOCATION: Bilateral upper quadrant MEASUREMENTS: LIVER: 14.2 cm length COMMON DUCT: 5 mm RIGHT KIDNEY: 10.0 x 5.9 x 6.4 cm SPLEEN: 11.9 cm length FINDINGS: LIVER: Slightly coarse in echotexture without focal lesion or ductal dilatation. Hepatopedal flow. COMMON DUCT: No intraluminal mass or stone visualized. GALLBLADDER: Contains no stones, demonstrates no wall thickening or pericholecystic fluid. PANCREAS: The visualized portions are within normal limits. RIGHT KIDNEY: No hydronephrosis, stone or mass. SPLEEN: No focal lesion. CONCLUSION: 1. Slightly coarse appearing liver which can be seen with cirrhosis. 2. No evidence for cholelithiasis. Seferino Sharma MD on May 06, 2016 at 13:15 Board Certified Radiologist. This report was verified electronically.
--- NOTE | 2016-05-06 15:19 | HHI.PR ---
Subjective Remarks The patient says he had a problem with the physical therapist again today. He says that his legs were swollen. He acknowledges that he drinks too much alcohol. Objective Vitals Vital Signs Date Time Temp Pulse Resp B/P Pulse Ox O2 Delivery O2 Flow Rate FiO2 05/06/16 12:00 98.0 93 20 131/73 98 05/06/16 08:00 98.3 87 20 94/58 99 05/06/16 04:00 98.0 90 18 114/62 98 05/06/16 00:18 98.4 97 18 111/60 98 05/05/16 20:00 Room Air 05/05/16 20:00 98.0 98 19 123/60 98 05/05/16 16:00 97.8 111 20 133/109 100 I/O 05/05/16 05/05/16 05/05/16 05/06/16 05/06/16 05/06/16 07:00 15:00 23:00 07:00 15:00 23:00 Intake Total 120 ml 242 ml 790 ml 480 ml Output Total 500 ml Balance 120 ml 242 ml 790 ml -20 ml Intake Oral 120 ml 240 ml 790 ml 480 ml IV Total 2 ml Output Urine Total 500 ml # Voids 1 2 3 # Bowel Movements 0 0 0 0 Result Diagram: 05/04/16 0850 05/06/16 0709 Imaging Last Impressions Liver Ultrasound 05/06/16 0000 Signed Impressions: Service Date/Time: May 10:12 - CONCLUSION: 1. Slightly coarse appearing liver which can be seen with cirrhosis. 2. No evidence for cholelithiasis. Seferino Sharma MD Chest X-Ray 05/05/16 0000 Signed Impressions: Service Date/Time: Thursday, May 05, 2016 16:11 - CONCLUSION: Mild compensated cardiomegaly. Carlos Schulz MD FACR Objective Remarks GENERAL: No acute distress. HEENT: NC, AT. CARDIOVASCULAR: Tachycardic without murmurs, gallops, or rubs. RESPIRATORY: Good respiratory efforts. Breath sounds equal and clear to auscultation bilaterally. GASTROINTESTINAL: Abdomen soft, non-tender, non-distended. Normal active bowel sounds MUSCULOSKELETAL: Extremities without cyanosis. 2-3+ pitting edema. NEURO: Mild confusion at times but aware of place. Moves all 4 extremities. Normal speech. PSYCH: Calm. A/P Problem List: (1) Alcohol withdrawal ICD Code: F10.239 Status: Acute (2) Hypercalcemia ICD Code: E83.52 Status: Acute (3) Hypomagnesemia ICD Code: E83.42 Status: Acute (4) Renal insufficiency ICD Code: N28.9 Status: Acute (5) UTI (urinary tract infection) ICD Code: N39.0 Status: Acute Assessment and Plan Alcohol intoxication/ Withdrawal H/o heavy alcohol abuse w/ acute withdrawal, drinks 1 pint daily, last drink approx 4 days prior to admission, alcohol level negative. - Seizure Precautions, CIWA protocol. - MVT/Thiamine/Folate replacement. - Analgesics/antiemetics as needed. - physical therapy. - Appreciate psychiatry following. Seroquel 50 mg BID. Acute metabolic encephalopathy Likely secondary to alcoholism and possibly cirrhosis. - Continue Lactulose. Titrate to 3-4 bowel movements daily. - Minimize sedative use. - check B12, TSH levels. Hypokalemia/ hypophosphatemia Possibly s/t decreased PO intake. - replete and monitor. Thrombocytopenia Likely secondary to chronic alcohol abuse. - Continue to monitor intermittently. Deconditioned S/t alcohol abuse. - PT seven days a week. - add OT. Dyspnea/ lower extremity edema Pt endorses dyspnea on exertion. Has pitting LE edema. Chest x-ray unremarkable. Liver ultrasound with changes that could indicate cirrhosis. - check a BNP. - nebs and oxygen as needed. - Duplex ultrasound of the lower extremities pending. - Continue Lasix. Add Aldactone. DVT Prophylaxis: SCD/Teds. No chemoprophylaxis due to thrombocytopenia. Discharge Planning Anticipate discharge in the next 1-2 days. Problem Qualifiers (1) Alcohol withdrawal: Qualified Code: F10.230 - Alcohol withdrawal, uncomplicated (2) UTI (urinary tract infection): Qualified Code: N30.00 - Acute cystitis without hematuria Suman Parry DO May 06, 2016 15:19
[2016-05-06 16:00] VITALS: BP 125/73; PULSE 94; RESP 20; TEMP 98; O2SAT 99
[2016-05-06] MEDS: SPIRONOLACTONE 25 MG TAB PO SCH (17:11)
[2016-05-06] MEDS: ACETAMINOPHEN/HYDROcodone 325 MG/5 MG TAB PO PRN (17:11)
--- NOTE | 2016-05-06 18:47 | RADRPT ---
EXAM DATE/TIME: 05/06/2016 17:52 [facility] COMPARISON: No previous studies available for comparison. INDICATIONS : Bilateral leg swelling. MEDICAL HISTORY : Deep venous thrombosis. Seizures. Head trauma. Ulcer. Substance use. SURGICAL HISTORY : Hernia repair. Vasectomy. Back surgery. ENCOUNTER: Initial ACUITY: 2 weeks PAIN SCORE: 7/10 LOCATION: Bilateral leg. TECHNIQUE: Venous ultrasound of the left and right leg was performed from the inguinal ligament to the proximal calf. Real-time, color Doppler and spectral tracing, compression and augmentation techniques were us ed. FINDINGS: RIGHT LEG: There is occlusive thrombus from the iliac vein all the way down to the posterior tibial vein. LEFT LEG: There is extensive thrombus from the iliac vein all the way down to the posterior tibial vein and gre ater saphenous vein is also occluded. CONCLUSION: Extensive DVT bilaterally. Giovani Briceño MD on May 06, 2016 at 18:44 Board Certified Radiologist. This report was verified electronically.
[2016-05-06 20:00] VITALS: BP 129/73; PULSE 91; RESP 20; TEMP 97.6; O2SAT 99
[2016-05-06] MEDS ORDERED: HEPARIN-D5W INJ 250 ML IV SCH (20:00)
[2016-05-06 22:14] LABS: MEAN CELL VOLUME 102.8 FL (80.0-100.0); MEAN CORPUSCULAR HEMOGLOBIN 35.1 PG (27.0-34.0); MEAN CORPUSCULAR HGB CONC 34.1 % (32.0-36.0); PLATELET COUNT 141 TH/MM3 (150-450); RED CELL DISTRIBUTION WIDTH 15.4 % (11.6-17.2); REVIEW FLAG FINAL; WHITE BLOOD COUNT 7.7 TH/MM3 (4.0-11.0)
[2016-05-06 22:24] LABS: APTT (PATIENT) 25.2 SEC (24.3-30.1); INTERNATIONAL NORMALIZED RATIO 1.1 RATIO; PROTHROMBIN TIME - PATIENT 12.7 SEC (9.8-11.6)
[2016-05-07] VITALS: BP 109/56; PULSE 89; RESP 20; TEMP 98; O2SAT 99
[2016-05-07] MEDS ORDERED: HEPARIN SODIUM - IV 10,000 UNITS/10 ML VIAL IV PRN ×2 (02:00)
[2016-05-07 04:00] VITALS: BP 135/65; PULSE 88; RESP 20; TEMP 98; O2SAT 99
[2016-05-07 05:56] LABS: APTT (PATIENT) 36.4 SEC (24.3-30.1)
[2016-05-07 06:15] LABS: MAGNESIUM 1.5 MG/DL (1.5-2.5); POTASSIUM 3.7 MEQ/L (3.5-5.1)
[2016-05-07 08:00] VITALS: BP 117/64; PULSE 82; RESP 12; TEMP 98.2; O2SAT 99
[2016-05-07] MEDS ORDERED: POTASSIUM CHLORIDE 20 MEQ CONTROLLED RELEASE TAB PO ONE (08:15)
[2016-05-07] MEDS: PANTOPRAZOLE SOD 40 MG DELAYED RELEASE TAB PO SCH (08:43)
[2016-05-07] MEDS: QUEtiapine FUMARATE 25 MG TAB PO SCH (08:44)
[2016-05-07] MEDS: ACETAMINOPHEN/HYDROcodone 325 MG/5 MG TAB PO PRN (08:45)
[2016-05-07] MEDS: FUROSEMIDE 40 MG TAB PO SCH (08:46)
[2016-05-07] MEDS: SPIRONOLACTONE 25 MG TAB PO SCH (08:46)
[2016-05-07] MEDS: LACTULOSE SYRUP 20 GM/30 ML CUP PO SCH (08:46)
[2016-05-07] MEDS: THIAMINE INJ 100 MG in SODIUM CHLORIDE 0.9% INJ 100 ML IV SCH ×2 (08:47→09:00)
[2016-05-07] MEDS: SODIUM CHLORIDE 0.9% FLUSH 5 ML FLUSH FLUSH SCH (08:48)
[2016-05-07] MEDS ORDERED: FURO40TA PO (08:49)
[2016-05-07] MEDS ORDERED: GETGO ROLLING W1 MI1 (08:49)
[2016-05-07] MEDS ORDERED: HYDR-3516 PO (08:49)
[2016-05-07] MEDS ORDERED: QUET1TAB7 PO (08:49)
[2016-05-07] MEDS ORDERED: LACT10SO PO (08:49)
[2016-05-07] MEDS ORDERED: THIA100T PO (08:49)
[2016-05-07] MEDS ORDERED: POTA-163 PO (08:49)
--- NOTE | 2016-05-07 08:50 | HHI.DCPOC ---
Discharge Care Plan Diagnosis: (1) Alcohol withdrawal (2) Weak (3) Delirium due to another medical condition (4) Hypomagnesemia (5) DVT, bilateral lower limbs Goals to Promote Your Health * To prevent worsening of your condition and complications * To maintain your health at the optimal level Directions to Meet Your Goals Take your medications as prescribed Follow your dietary instruction Follow activity as directed Keep your appointments as scheduled Take your immunizations and boosters as scheduled If your symptoms worsen call your PCP, if no PCP go to Urgent Care Center or Emergency Room Smoking is Dangerous to Your Health. Avoid second hand smoke Call the 24-hour hour crisis hotline for domestic abuse at Suman Parry DO May 07, 2016 08:50
[2016-05-07] MEDS: MAGNESIUM SULFATE 1 GM PREMIX 100 ML IV SCH ×3 (08:51→11:26)
[2016-05-07] MEDS ORDERED: MAGN400T2 PO (08:52)
--- NOTE | 2016-05-07 09:13 | HHI.DS ---
Discharge Summary Admission Date Apr 23, 2016 at 01:42 Discharge Date: May 07, 2016 Admitting Diagnosis alcohol abuse, hypomagnesemia, ARF (1) Alcohol withdrawal ICD Code: F10.239 Diagnosis: Principal (2) Hypercalcemia ICD Code: E83.52 (3) Hypomagnesemia ICD Code: E83.42 Diagnosis: Principal (4) Renal insufficiency ICD Code: N28.9 (5) UTI (urinary tract infection) ICD Code: N39.0 (6) DVT, bilateral lower limbs ICD Code: I82.403 Diagnosis: Principal (7) Weak ICD Code: R53.1 Procedures None. Brief History - From Admission This is a 65-year-old male with a PMH of Alcohol Abuse who presented to the ER secondary to alcohol withdrawal. Reports long history of alcohol abuse, drinks 1 Pint liquor daily, but quit 4 days ago. Has had progressive abdominal pain, nausea, vomiting and tremors. No seizure activity reported. On arrival, BP 120 /84, HR 102, O2 sat 97% on RA, Afebrile. WBC 15.3. Creatinine 2.12, and appears labs for comparison. GFR 32. Calcium 11.6. Mg 1.3. U/a w/ UTI. S/p Urine Culture and IV Rocephin in ER. CBC/BMP: 05/06/16 2125 05/07/16 0458 Significant Findings Laboratory Tests Test 05/06/16 05/06/16 05/07/16 07:09 21:25 04:58 Blood Urea Nitrogen 6 MG/DL (7-18) 5 MG/DL (7-18) Calcium Level 8.3 MG/DL 8.0 MG/DL (8.5-10.1) (8.5-10.1) Red Blood Count 3.50 MIL/MM3 (4.50-5.90) Hemoglobin 12.3 GM/DL (13.0-17.0) Hematocrit 36.0 % (39.0-51.0) Mean Corpuscular Volume 102.8 FL (80.0-100.0) Mean Corpuscular Hemoglobin 35.1 PG (27.0-34.0) Platelet Count 141 TH/MM3 (150-450) Prothrombin Time 12.7 SEC (9.8-11.6) Activated Partial 36.4 SEC Thromboplast Time (24.3-30.1) Estimat Glomerular Filtration 85 ML/MIN (>89) Rate Random Glucose 108 MG/DL (74-106) Imaging Last Impressions Lower Extremity Ultrasound 05/06/16 0000 Signed Impressions: Service Date/Time: May 17:52 - CONCLUSION: Extensive DVT bilaterally. Giovani Briceño MD Liver Ultrasound 05/06/16 0000 Signed Impressions: Service Date/Time: May 10:12 - CONCLUSION: 1. Slightly coarse appearing liver which can be seen with cirrhosis. 2. No evidence for cholelithiasis. Seferino Sharma MD Chest X-Ray 05/05/16 0000 Signed Impressions: Service Date/Time: Thursday, May 05, 2016 16:11 - CONCLUSION: Mild compensated cardiomegaly. Carlos Schulz MD FACR PE at Discharge GENERAL: No acute distress. HEENT: NC, AT. CARDIOVASCULAR: Regular rate and rhythm without murmurs, gallops or rubs. RESPIRATORY: Good respiratory efforts. Breath sounds equal and clear to auscultation bilaterally. GASTROINTESTINAL: Abdomen soft, non-tender, non-distended. Normal active bowel sounds MUSCULOSKELETAL: Extremities without cyanosis. 2-3+ pitting edema. NEURO: Alert and oriented. Moves all 4 extremities. Normal speech. PSYCH: Calm. Pt update on day of discharge The patient's thought he still felt weak. He said he would like to be on Xarelto further blood clots in his legs. He said he had an IVC filter placed about 2 years ago. He said he does sometimes fall when he drinks alcohol but he does not think he falls more than a nondrinker does. Discussed with nursing. Hospital Course Alcohol intoxication/ Withdrawal H/o heavy alcohol abuse w/ acute withdrawal, drinks 1 pint daily, last drink approx 4 days prior to admission, alcohol level negative. He was placed on seizure precautions and the CIWA protocol. He received MVT/Thiamine/Folate replacement. He worked with physical therapy and occupational therapy but refused treatment frequently. He received alcohol cessation instruction. He will continue thiamine upon discharge. He will be prescribed a rolling walker. Lower extremity DVTs The pt had pitting LE edema. Liver ultrasound with changes that could indicate cirrhosis. BNP not elevated. CXR unremarkable. Duplex ultrasound of the lower extremities revealed extensive bilateral DVTs. The pt already has an IVC filter in place. He has been on Xarelto in the past. As the pt drinks heavily and is a fall risk and already has an IVC filter in place full anticoagulation will not be started at this time. He also had thrombocytopenia for a time while in the hospital. He should follow up with a PCP to be reassessed for candidacy to start full anticoagulation as an outpt. He will continue Lasix. Acute metabolic encephalopathy Psychiatry was consulted for agitation and the pt was started on Seroquel. He was also started on lactulose. Mental status improved. He will continue Seroquel and lactulose upon discharge. Hypokalemia/ hypophosphatemia/ hypomagnesemia His electrolytes were monitored and repleted. He will be discharged on magnesium and potassium supplements. Pt Condition on Discharge: Stable Discharge Disposition: Discharge Home Discharge Time: > 30 minutes Discharge Instructions DIET: Follow Instructions for: Heart Healthy Diet Activities you can perform: Weight Bearing as Syed Follow up Referrals: PCP Follow-up - [address] Loly Young New Medications: Magnesium Oxide (Magnesium Oxide) 400 Mg Tab 400 MG PO DAILY Nutritional Supplement #30 Ref 0 TAB Potassium Chloride ER (Potassium Chloride ER) 20 Meq Tab 20 MEQ PO DAILY Electrolyte Replacement #30 Ref 0 TAB Thiamine (Thiamine) 100 Mg Tab 100 MG PO DAILY Nutritional Supplement #30 Ref 0 TAB Walker Rolling/GetGo (Walker Rolling/GetGo) 1 Mis Mis 1 EA .ROUTE DIRECTED #1 EA Furosemide (Furosemide) 40 Mg Tab 40 MG PO DAILY Leg swelling #30 TAB Hydrocodone-Acetaminophen (Hydrocodone-Acetaminophen) 5-325 mg Tab 1 TAB PO Q6H PRN PAIN GREATER THAN 5 #15 TAB Lactulose Liq (Lactulose Liq) 10 Gm/15 Ml Soln 30 ML PO DAILY Confusion #1 BOTTLE Quetiapine (Quetiapine) 25 Mg Tab 50 MG PO BID Mood #60 TAB Suman Parry DO May 07, 2016 09:13
[2016-05-07 12:00] VITALS: BP 107/58; PULSE 85; RESP 20; TEMP 98.3; O2SAT 96
== END 2016-05-07 13:30 | disposition home or self-care (01) | DRG 896 ==
LOC: NEPE 19:20 → NEDA 04-23 01:42 → NEDH 04-23 05:42 → N04A 04-23 15:25
PROVIDERS: ADMIT Hospitalist; ATTEND Hospitalist
DX: F10.239 Alcohol dependence with withdrawal, unspecified (principal); G93.41 Metabolic encephalopathy; F10.231 Alcohol dependence with withdrawal delirium; I82.423 Acute embolism and thrombosis of iliac vein, bilateral; N30.00 Acute cystitis without hematuria; E83.42 Hypomagnesemia; E83.39 Other disorders of phosphorus metabolism; D69.59 Other secondary thrombocytopenia; E83.52 Hypercalcemia; N28.9 Disorder of kidney and ureter, unspecified; E86.0 Dehydration; E87.6 Hypokalemia; R06.00 Dyspnea, unspecified; Z23 Encounter for immunization
CPT/HCPCS: 71010; 76705; 76937; 80048; 80053; 81001; 82140; 82607; 82948; 83735; 83880; 84100; 84155; 84443; 85007; 85025; 85027; 85610; 85730; 87086; 90471; 90472; 90686; 90732; 93005; 93970; 96361; 96374; C9113; G0008; G0009; J0610; J0696; J1644; J2060; J2405; J2765; J3411; J3475; J3480; J7030; J7040; J7050; Q2038